=== PATIENT | female | born 1945 | race African-American/Black ===

== ENCOUNTER 2018-06-19 12:00 | Inpatient (IN) | payer MEDICARE, MEDICAID ==
[~2018-06-19] VITALS: Ht 162.6 cm; Wt 97.1 kg
[~2018-06-19 12:00] MED LIST: ACET1TAB14 PO; ASPI-986 PO; BENA40TA66 PO; BUDE6HFA IH; CYM20 PO; LEVO500T2 PO; LORA0.5T2 PO; OMEP20TA2 PO; SIMV20TA6 PO
[2018-06-19 12:56] LABS: HEMATOCRIT. 35.4 % (36.0-48.0); MEAN CORPUSCULAR HEMOGLOBIN 30.6 pg (28.0-32.0); MEAN CORPUSCULAR VOLUME 90.5 fL (81.0-99.0); MEAN PLATELET VOLUME 7.9 fl (7.4-10.4); PLATELET 260 x1000/uL (130-400); RED BLOOD CELL COUNT 3.91 mill/uL (4.2-5.4); RED CELL DISTRIBUTION WIDTH 15.1 % (11.6-14.6)
[2018-06-19 13:02] LABS: CHLORIDE 104 mEq/L (98-107)
[2018-06-19 13:23] LABS: PARTIAL THROMBOPLASTIN TIME 26.7 sec (23.4-31.0); PROTHROMBIN TIME 10.4 sec (9.1-11.1)
[2018-06-19 14:07] LABS: PLATELET ESTIMATE NORMAL
[2018-06-19] MEDS ORDERED: HYDROCODONE/ACETAMINOPHEN 5/325MG TABLET PO ONE (15:30)
[2018-06-19] MEDS ORDERED: MAGNESIUM/ALUMINUM HYDROXIDE/SIMETHICONE 30ML UDC PO PRN (16:15)
[2018-06-19] MEDS ORDERED: CLONIDINE 0.1MG TABLET PO PRN (16:15)
[2018-06-19] MEDS ORDERED: NITROGLYCERIN 0.4MG TABLET SL SL PRN (16:15)
[2018-06-19] MEDS ORDERED: DIPHENHYDRAMINE 50MG/ML VIAL IV PRN (16:15)
[2018-06-19] MEDS ORDERED: DOCUSATE SODIUM 100MG CAPSULE PO PRN (16:15)
[2018-06-19] MEDS ORDERED: LORAZEPAM 0.5MG TABLET PO PRN (16:15)
[2018-06-19] MEDS ORDERED: NA PHOS,M-B/NA PHOS,DI-BA ENEMA 118ML PR PRN (16:15)
[2018-06-19] MEDS ORDERED: ACETAMINOPHEN 325MG TABLET PO PRN (16:15)
[2018-06-19] MEDS ORDERED: ZOLPIDEM TARTRATE 5MG TABLET PO PRN (21:00)
[2018-06-19 23:22] VITALS: BP 124/54
[2018-06-19] MEDS ORDERED: ONDANSETRON HCL 4MG/2ML INJ IV PRN (23:40)
[2018-06-20] VITALS: BP 124/54
[2018-06-20] MEDS: LISINOPRIL 20MG TABLET PO SCH ×3 (00:31→20:43)
[2018-06-20 01:08] LABS: CREATINE KINASE 71 IU/L (26-192)
[2018-06-20 01:09] LABS: CREATINE KINASE MB FRACTION 1.1 ng/mL (0.5-3.6)
[2018-06-20] MEDS: IPRATROPIUM/ALBUTEROL 0.5-3(2.5)MG/3ML NEB HHN SCH ×6 (01:19→21:12)
[2018-06-20 04:00] VITALS: BP 115/55
[2018-06-20 08:00] VITALS: BP 143/37
[2018-06-20] MEDS ORDERED: ENOXAPARIN 40MG/0.4ML SYR SUBCUT SCH (09:00)
[2018-06-20] MEDS: ASPIRIN 325MG EC TABLET PO SCH (10:34)
[2018-06-20] MEDS: FAMOTIDINE 20MG TABLET PO SCH ×2 (10:34→20:49)
[2018-06-20] MEDS: TRAMADOL 50MG TABLET PO PRN (10:35)
[2018-06-20] MEDS: MORPHINE SULFATE 4 MG/ML CPJ (NOT FOR IM USE) IV PRN ×3 (11:31→20:51)
[2018-06-20 12:16] VITALS: BP 94/48
[2018-06-20 16:19] LABS: CREATINE KINASE 62 IU/L (26-192); CREATINE KINASE MB FRACTION < 1.0 ng/mL (0.5-3.6)
[2018-06-20 16:32] VITALS: BP 78/45
[2018-06-20 20:36] VITALS: BP 101/62
[2018-06-20] MEDS: ATORVASTATIN CALCIUM 10MG TABLET PO SCH (20:49)
[2018-06-20] MEDS: ENOXAPARIN 30MG/0.3ML SYR SUBCUT SCH (20:50)
[2018-06-21] VITALS (8 sets, daily range): BP systolic 88–115; BP diastolic 42–85
[2018-06-21] MEDS: MORPHINE SULFATE 4 MG/ML CPJ (NOT FOR IM USE) IV PRN ×3 (01:12→16:07)
[2018-06-21] MEDS: IPRATROPIUM/ALBUTEROL 0.5-3(2.5)MG/3ML NEB HHN SCH ×6 (04:00→22:11)
[2018-06-21] MEDS: LISINOPRIL 20MG TABLET PO SCH ×2 (09:00→21:00)
[2018-06-21] MEDS: ENOXAPARIN 30MG/0.3ML SYR SUBCUT SCH ×2 (09:00→21:11)
[2018-06-21] MEDS: ASPIRIN 325MG EC TABLET PO SCH (09:24)
[2018-06-21] MEDS: FAMOTIDINE 20MG TABLET PO SCH ×2 (09:25→21:11)
[2018-06-21] MEDS ORDERED: SODIUM CHLORIDE 0.9% 250 ML IV ONE (14:00)
[2018-06-21 15:16] LABS: HEMATOCRIT. 33.8 % (36.0-48.0); HEMOGLOBIN. 11.3 g/dL (12.0-16.0); MEAN CORPUSCULAR HEMOGLOBIN 30.4 pg (28.0-32.0); MEAN CORPUSCULAR VOLUME 91.4 fL (81.0-99.0); PLATELET 256 x1000/uL (130-400); RED CELL DISTRIBUTION WIDTH 15.2 % (11.6-14.6)
[2018-06-21 16:02] LABS: PLATELET ESTIMATE NORMAL
[2018-06-21] MEDS: ATORVASTATIN CALCIUM 10MG TABLET PO SCH (21:11)
[2018-06-22 00:18] VITALS: BP 122/74
[2018-06-22] MEDS: TRAMADOL 50MG TABLET PO PRN ×3 (00:21→21:45)
[2018-06-22 01:18] LABS: CLARITY URINE CLOUDY (CLEAR); COLOR URINE YELLOW (YELLOW); KETONES URINE NEGATIVE (NEGATIVE); LEUKOCYTE ESTERASE URINE 3+ (NEGATIVE); NITRITE URINE NEGATIVE (NEGATIVE); OCCULT BLOOD URINE NEGATIVE (NEGATIVE); PROTEIN URINE NEGATIVE (NEGATIVE); SPECIFIC GRAVITY URINE 1.009 (1.005-1.030); UROBILINOGEN URINE 0.2 E.U./dL (0.2-1.0)
[2018-06-22] MEDS: IPRATROPIUM/ALBUTEROL 0.5-3(2.5)MG/3ML NEB HHN SCH ×5 (01:48→20:57)
[2018-06-22 04:00] VITALS: BP 103/48
[2018-06-22 07:53] VITALS: BP 90/48
[2018-06-22] MEDS: LISINOPRIL 20MG TABLET PO SCH ×2 (09:00→20:56)
[2018-06-22] MEDS: ASPIRIN 325MG EC TABLET PO SCH (09:37)
[2018-06-22] MEDS: FAMOTIDINE 20MG TABLET PO SCH ×2 (09:37→20:56)
[2018-06-22] MEDS: ENOXAPARIN 30MG/0.3ML SYR SUBCUT SCH ×2 (09:38→20:57)
[2018-06-22] MEDS: CEFTRIAXONE 1 G PREMIX 50 ML IV SCH (11:30)
[2018-06-22 11:54] VITALS: BP 86/36
[2018-06-22] MEDS ORDERED: LEVOFLOXACIN 500MG PREMIX 100 ML IV NR (12:00)
[2018-06-22 16:27] VITALS: BP 93/41
[2018-06-22 20:13] VITALS: BP 99/49
[2018-06-22] MEDS: ATORVASTATIN CALCIUM 10MG TABLET PO SCH (20:56)
[2018-06-23] VITALS: BP 91/47
[2018-06-23] MEDS: IPRATROPIUM/ALBUTEROL 0.5-3(2.5)MG/3ML NEB HHN SCH ×7 (01:06→21:20)
[2018-06-23 04:00] VITALS: BP 99/52
[2018-06-23 08:00] VITALS: BP 128/62
[2018-06-23] MEDS: LISINOPRIL 20MG TABLET PO SCH ×2 (08:16→20:28)
[2018-06-23] MEDS: FAMOTIDINE 20MG TABLET PO SCH (08:16)
[2018-06-23] MEDS: ASPIRIN 325MG EC TABLET PO SCH (08:16)
[2018-06-23] MEDS: ENOXAPARIN 30MG/0.3ML SYR SUBCUT SCH ×2 (08:17→20:27)
[2018-06-23] MEDS: CEFTRIAXONE 1 G PREMIX 50 ML IV SCH (10:39)
[2018-06-23] MEDS ORDERED: LEVOFLOXACIN 250MG PREMIX 50 ML IV SCH (11:00)
[2018-06-23 12:00] VITALS: BP 108/40
[2018-06-23 16:00] VITALS: BP 96/58
[2018-06-23] MEDS: TRAMADOL 50MG TABLET PO PRN ×2 (16:15→20:27)
[2018-06-23 20:00] VITALS: BP 91/47
[2018-06-23] MEDS: ATORVASTATIN CALCIUM 10MG TABLET PO SCH (20:27)
[2018-06-24] VITALS: BP 99/53
[2018-06-24] MEDS: IPRATROPIUM/ALBUTEROL 0.5-3(2.5)MG/3ML NEB HHN SCH ×6 (00:19→23:47)
[2018-06-24 04:00] VITALS: BP 108/39
[2018-06-24 08:43] VITALS: BP 95/53
[2018-06-24] MEDS: ENOXAPARIN 30MG/0.3ML SYR SUBCUT SCH ×2 (08:53→20:34)
[2018-06-24] MEDS: FAMOTIDINE 20MG TABLET PO SCH (08:53)
[2018-06-24] MEDS: LISINOPRIL 20MG TABLET PO SCH ×2 (08:53→20:34)
[2018-06-24] MEDS: ASPIRIN 325MG EC TABLET PO SCH (08:53)
[2018-06-24] MEDS: TRAMADOL 50MG TABLET PO PRN (08:54)
[2018-06-24 13:01] VITALS: BP 106/52
[2018-06-24] MEDS: MEROPENEM 1,000 MG in SODIUM CHLORIDE 0.9% 100 ML IV SCH ×2 (13:07→20:34)
[2018-06-24 17:45] VITALS: BP 109/44
[2018-06-24 20:00] VITALS: BP 116/65
[2018-06-24] MEDS ORDERED: TRAMADOL 50MG TABLET PO PRN (20:30)
[2018-06-24] MEDS ORDERED: LORAZEPAM 0.5MG TABLET PO PRN (20:30)
[2018-06-24] MEDS: MORPHINE SULFATE 4 MG/ML CPJ (NOT FOR IM USE) IV PRN (20:33)
[2018-06-24] MEDS: ATORVASTATIN CALCIUM 10MG TABLET PO SCH (20:34)
[2018-06-25] VITALS: BP 99/50
[2018-06-25] MEDS: IPRATROPIUM/ALBUTEROL 0.5-3(2.5)MG/3ML NEB HHN SCH ×2 (03:04→08:00)
[2018-06-25 04:00] VITALS: BP 135/80
[2018-06-25] MEDS: MEROPENEM 1,000 MG in SODIUM CHLORIDE 0.9% 100 ML IV SCH (05:11)
[2018-06-25] MEDS: MORPHINE SULFATE 4 MG/ML CPJ (NOT FOR IM USE) IV PRN (06:06)
[2018-06-25] MEDS: LISINOPRIL 20MG TABLET PO SCH (09:00)
[2018-06-25] MEDS: FAMOTIDINE 20MG TABLET PO SCH (09:26)
[2018-06-25] MEDS: ENOXAPARIN 30MG/0.3ML SYR SUBCUT SCH (09:26)
[2018-06-25] MEDS: ASPIRIN 325MG EC TABLET PO SCH (09:26)
[2018-06-25 10:34] VITALS: BP 99/99
== END 2018-06-25 11:15 | disposition home or self-care (01) | DRG 689 ==
LOC: ER 12:52 → 6WST 13:54 → EDBEDREQ 14:06 → EDBEDREQTM 14:06 → SUPCPDRO 16:08 → ENRESERV 20:04
PROVIDERS: ADMIT Internal Medicine; ATTEND Internal Medicine
DX: N39.0 Urinary tract infection, site not specified (principal); G92 Toxic encephalopathy; E87.1 Hypo-osmolality and hyponatremia; R07.89 Other chest pain; E78.00 Pure hypercholesterolemia, unspecified; E78.5 Hyperlipidemia, unspecified; J44.9 Chronic obstructive pulmonary disease, unspecified; B96.20 Unspecified Escherichia coli [E. coli] as the cause of diseases classified elsewhere; K21.9 Gastro-esophageal reflux disease without esophagitis; Z96.659 Presence of unspecified artificial knee joint; F32.9 Major depressive disorder, single episode, unspecified; Z16.12 Extended spectrum beta lactamase (ESBL) resistance; F41.9 Anxiety disorder, unspecified; I10 Essential (primary) hypertension; Z76.5 Malingerer [conscious simulation]; Z79.82 Long term (current) use of aspirin; Z79.899 Other long term (current) drug therapy; Z91.19 Patient's noncompliance with other medical treatment and regimen; Z82.49 Family history of ischemic heart disease and other diseases of the circulatory system; Z79.2 Long term (current) use of antibiotics; Z79.1 Long term (current) use of non-steroidal anti-inflammatories (NSAID)
CPT/HCPCS: 36415; 71045; 80048; 80053; 80061; 81003; 82550; 82553; 83036; 83880; 84484; 85025; 85610; 85730; 87040; 87077; 87086; 87186; 93005; 93970; 94640; 99285; C1893; J0696; J1650; J1956; J2185; J2270; J7050; J7620

== ENCOUNTER 2018-07-02 11:56 | Emergency (ER) | payer MEDICARE, MEDICAID ==
[~2018-07-02] VITALS: Ht 157.5 cm; Wt 78.0 kg
[2018-07-02] MEDS ORDERED: ACETAMINOPHEN 500MG TABLET PO ONE (13:45)
[2018-07-02 14:50] VITALS: BP 118/72
== END 2018-07-02 15:20 | disposition home or self-care (01) ==
LOC: ER 11:56
DX: S50.12XA Contusion of left forearm, initial encounter (principal); S40.022A Contusion of left upper arm, initial encounter; I11.0 Hypertensive heart disease with heart failure; I50.9 Heart failure, unspecified; J44.9 Chronic obstructive pulmonary disease, unspecified; E66.9 Obesity, unspecified; Z68.31 Body mass index [BMI] 31.0-31.9, adult; Z86.73 Personal history of transient ischemic attack (TIA), and cerebral infarction without residual deficits; Z79.82 Long term (current) use of aspirin; Z96.659 Presence of unspecified artificial knee joint; W01.0XXA Fall on same level from slipping, tripping and stumbling without subsequent striking against object, initial encounter; Y93.89 Activity, other specified; Y92.89 Other specified places as the place of occurrence of the external cause
CPT/HCPCS: 93005; 99284; J7030

== ENCOUNTER 2018-09-08 14:09 | Emergency (ER) | payer MEDICARE, MEDICAID ==
[~2018-09-08] VITALS: Ht 167.6 cm; Wt 90.0 kg
[2018-09-08] MEDS ORDERED: SODIUM CHLORIDE 0.9% 1,000 ML IV ONE (14:46)
[2018-09-08 15:44] LABS: HEMATOCRIT. 36.4 % (36.0-48.0); MEAN CORPUSCULAR HEMOGLOBIN 30.5 pg (28.0-32.0); MEAN CORPUSCULAR VOLUME 92.6 fL (81.0-99.0); MEAN PLATELET VOLUME 8.8 fl (7.4-10.4); PLATELET 244 x1000/uL (130-400); RED BLOOD CELL COUNT 3.93 mill/uL (4.2-5.4)
[2018-09-08 15:47] LABS: CHLORIDE 106 mEq/L (98-107)
[2018-09-08 15:48] LABS: PROTHROMBIN TIME 9.7 sec (9.1-11.1)
[2018-09-08 16:11] LABS: PLATELET ESTIMATE NORMAL
[2018-09-08] MEDS ORDERED: ACETAMINOPHEN 325MG TABLET PO ONE (16:15)
[2018-09-08 16:52] VITALS: BP 134/60
[2018-09-08 17:26] LABS: CLARITY URINE CLEAR (CLEAR); COLOR URINE YELLOW (YELLOW); KETONES URINE NEGATIVE (NEGATIVE); LEUKOCYTE ESTERASE URINE TRACE (NEGATIVE); NITRITE URINE NEGATIVE (NEGATIVE); OCCULT BLOOD URINE NEGATIVE (NEGATIVE); PROTEIN URINE NEGATIVE (NEGATIVE); SPECIFIC GRAVITY URINE 1.008 (1.005-1.030); UROBILINOGEN URINE 0.2 E.U./dL (0.2-1.0)
== END 2018-09-08 18:49 | disposition home or self-care (01) ==
LOC: ER 14:18
DX: R55 Syncope and collapse (principal); N28.9 Disorder of kidney and ureter, unspecified; M25.511 Pain in right shoulder; J44.9 Chronic obstructive pulmonary disease, unspecified; I11.0 Hypertensive heart disease with heart failure; I50.9 Heart failure, unspecified; I69.351 Hemiplegia and hemiparesis following cerebral infarction affecting right dominant side; Z96.659 Presence of unspecified artificial knee joint; Z79.82 Long term (current) use of aspirin
CPT/HCPCS: 36415; 70450; 71045; 80053; 81003; 83605; 83880; 84484; 85025; 85610; 93005; 96360; 99284; J7030

== ENCOUNTER 2018-10-22 07:48 | Inpatient (IN) | payer MEDICARE, MEDICAID ==
[~2018-10-22] VITALS: Ht 165.1 cm; Wt 99.3 kg
[2018-10-22] MEDS ORDERED: SODIUM CHLORIDE 0.9% 1,000 ML IV ONE (08:34)
[2018-10-22 09:31] LABS: CLARITY URINE CLEAR (CLEAR); COLOR URINE YELLOW (YELLOW); KETONES URINE NEGATIVE (NEGATIVE); LEUKOCYTE ESTERASE URINE 2+ (NEGATIVE); NITRITE URINE NEGATIVE (NEGATIVE); OCCULT BLOOD URINE NEGATIVE (NEGATIVE); PH URINE 7.5 (4.5-8.0); PROTEIN URINE NEGATIVE (NEGATIVE); SPECIFIC GRAVITY URINE 1.008 (1.005-1.030); UROBILINOGEN URINE 0.2 E.U./dL (0.2-1.0)
[2018-10-22] MEDS ORDERED: LORAZEPAM 1MG TABLET PO ONE (09:45)
[2018-10-22 10:00] LABS: *AMPHETAMINES SCREEN URINE NEGATIVE (NEGATIVE); *BARBITURATES SCREEN URINE NEGATIVE (NEGATIVE); *BENZODIAZEPINES SCREEN URINE NEGATIVE (NEGATIVE); *COCAINE SCREEN URINE NEGATIVE (NEGATIVE)
[2018-10-22 10:01] LABS: CANNABINOID URINE SCREEN NEGATIVE (NEGATIVE); METHADONE URINE SCREEN NEGATIVE (NEGATIVE); OPIATES URINE SCREEN PRESUMTIVE POSITIVE (NEGATIVE); PHENCYCLIDINE URINE SCREEN NEGATIVE (NEGATIVE)
[2018-10-22] MEDS ORDERED: CEFTRIAXONE 1 G PREMIX 50 ML IV ONE (10:15)
[2018-10-22 10:29] LABS: BASOPHILS % 1.1 % (0.0-2.0); HEMATOCRIT. 30.8 % (36.0-48.0); LYMPHOCYTES % 28.6 % (20.0-50.0); MEAN CORPUSCULAR HEMOGLOBIN 30.4 pg (28.0-32.0); MEAN CORPUSCULAR VOLUME 93.2 fL (81.0-99.0); MEAN PLATELET VOLUME 7.5 fl (7.4-10.4); MONOCYTES % 9.1 % (2.0-8.0); NEUTROPHILS % 55.2 % (40.0-76.0); PLATELET 313 x1000/uL (130-400); RED CELL DISTRIBUTION WIDTH 15.1 % (11.6-14.6)
[2018-10-22 10:35] LABS: CHLORIDE 108 mEq/L (98-107)
[2018-10-22 10:39] LABS: ETHANOL BLOOD < 10 mg/dL
[2018-10-22] MEDS ORDERED: DOCUSATE SODIUM 100MG CAPSULE PO PRN (11:15)
[2018-10-22] MEDS ORDERED: GUAIFENESIN 200MG/10ML SUGAR FREE UDC PO PRN (11:15)
[2018-10-22] MEDS ORDERED: ONDANSETRON HCL 4MG/2ML INJ IV PRN (11:15)
[2018-10-22] MEDS ORDERED: CLONIDINE 0.1MG TABLET PO PRN (11:15)
[2018-10-22] MEDS ORDERED: MAGNESIUM/ALUMINUM HYDROXIDE/SIMETHICONE 30ML UDC PO PRN (11:15)
[2018-10-22] MEDS ORDERED: IPRATROPIUM/ALBUTEROL 0.5-3(2.5)MG/3ML NEB INH PRN (11:15)
[2018-10-22] MEDS ORDERED: ACETAMINOPHEN 325MG TABLET PO PRN (11:15)
[2018-10-22] MEDS ORDERED: NA PHOS,M-B/NA PHOS,DI-BA ENEMA 118ML PR PRN (11:15)
[2018-10-22] MEDS: LORAZEPAM 2MG/ML CPJ IV PRN (13:14)
[2018-10-22 14:19] VITALS: BP 119/54
[2018-10-22 16:00] VITALS: BP 123/65
[2018-10-22] MEDS: HYDROMORPHONE HCL/PF 2MG/ML CPJ IV PRN ×2 (16:27→21:06)
[2018-10-22] MEDS: SODIUM CHLORIDE 0.45% 1,000 ML IV SCH (16:29)
[2018-10-22] MEDS: PIPERACILLIN/TAZ 3.375G PREMIX 50 ML IV SCH ×2 (16:42→22:14)
[2018-10-22] MEDS: ASPIRIN 81MG EC TABLET PO SCH (16:42)
[2018-10-22 20:00] VITALS: BP 138/56
[2018-10-22] MEDS: ENOXAPARIN 30MG/0.3ML SYR SUBCUT SCH (21:07)
[2018-10-23] VITALS: BP 127/55
[2018-10-23 00:49] LABS: CHLORIDE 110 mEq/L (98-107)
[2018-10-23] MEDS: HYDROMORPHONE HCL/PF 2MG/ML CPJ IV PRN (01:47)
[2018-10-23] MEDS: DIPHENHYDRAMINE 50MG/ML VIAL IV PRN ×2 (02:11→21:15)
[2018-10-23 04:00] VITALS: BP 106/65
[2018-10-23] MEDS: PIPERACILLIN/TAZ 3.375G PREMIX 50 ML IV SCH ×3 (04:09→18:10)
[2018-10-23] MEDS: SODIUM CHLORIDE 0.45% 1,000 ML IV SCH ×2 (04:17→21:14)
[2018-10-23 07:29] LABS: BASOPHILS % 1.8 % (0.0-2.0); HEMATOCRIT. 30.9 % (36.0-48.0); HEMOGLOBIN. 10.2 g/dL (12.0-16.0); MEAN CORPUSCULAR VOLUME 93.9 fL (81.0-99.0); MEAN PLATELET VOLUME 8.3 fl (7.4-10.4); NEUTROPHILS % 36.2 % (40.0-76.0); PLATELET 311 x1000/uL (130-400); RED BLOOD CELL COUNT 3.29 mill/uL (4.2-5.4); RED CELL DISTRIBUTION WIDTH 15.4 % (11.6-14.6)
[2018-10-23 08:00] LABS: CHLORIDE 109 mEq/L (98-107)
[2018-10-23 08:10] LABS: LDL CHOLESTEROL 71 mg/dL (5-100)
[2018-10-23 08:11] LABS: HDL CHOLESTEROL 59 mg/dL (40-59); T4 FREE 1.02 ng/dL (0.76-1.46)
[2018-10-23 08:43] VITALS: BP 106/62
[2018-10-23] MEDS: ASPIRIN 81MG EC TABLET PO SCH (09:25)
[2018-10-23] MEDS: ENOXAPARIN 30MG/0.3ML SYR SUBCUT SCH ×2 (09:28→21:14)
[2018-10-23 12:00] VITALS: BP 109/49
[2018-10-23 15:40] LABS: CREATINE KINASE 57 IU/L (26-192)
[2018-10-23 15:42] LABS: CREATINE KINASE MB FRACTION < 1.0 ng/mL (0.5-3.6)
[2018-10-23 16:00] VITALS: BP 124/63
[2018-10-23] MEDS: HYDROCODONE/ACETAMINOPHEN 5/325MG TABLET PO PRN ×2 (18:26→22:09)
[2018-10-23 20:00] VITALS: BP 132/64
[2018-10-23] MEDS: LORAZEPAM 2MG/ML CPJ IV PRN (22:49)
[2018-10-24] VITALS: BP 140/66
[2018-10-24] MEDS: PIPERACILLIN/TAZ 3.375G PREMIX 50 ML IV SCH ×4 (00:38→19:46)
[2018-10-24 01:53] LABS: CREATINE KINASE 58 IU/L (26-192)
[2018-10-24 01:54] LABS: CREATINE KINASE MB FRACTION < 1.0 ng/mL (0.5-3.6)
[2018-10-24 04:00] VITALS: BP 132/69
[2018-10-24] MEDS: HYDROCODONE/ACETAMINOPHEN 5/325MG TABLET PO PRN (05:02)
[2018-10-24 08:00] VITALS: BP 114/63
[2018-10-24 08:01] LABS: BASOPHILS % 2.3 % (0.0-2.0); EOSINOPHILS % 14.4 % (0.0-5.0); HEMATOCRIT. 30.7 % (36.0-48.0); HEMOGLOBIN. 10.3 g/dL (12.0-16.0); LYMPHOCYTES % 37.8 % (20.0-50.0); MEAN CORPUSCULAR HEMOGLOBIN 31.1 pg (28.0-32.0); MEAN CORPUSCULAR VOLUME 92.7 fL (81.0-99.0); MEAN PLATELET VOLUME 8.3 fl (7.4-10.4); MONOCYTES % 10.9 % (2.0-8.0); NEUTROPHILS % 34.6 % (40.0-76.0); PLATELET 306 x1000/uL (130-400); RED BLOOD CELL COUNT 3.31 mill/uL (4.2-5.4); RED CELL DISTRIBUTION WIDTH 14.8 % (11.6-14.6)
[2018-10-24 08:43] LABS: CHLORIDE 112 mEq/L (98-107)
[2018-10-24 08:54] LABS: CREATINE KINASE 60 IU/L (26-192)
[2018-10-24 09:02] LABS: CREATINE KINASE MB FRACTION < 1.0 ng/mL (0.5-3.6)
[2018-10-24] MEDS: ASPIRIN 81MG EC TABLET PO SCH (10:07)
[2018-10-24] MEDS: ENOXAPARIN 30MG/0.3ML SYR SUBCUT SCH ×2 (10:07→20:47)
[2018-10-24 12:00] VITALS: BP 123/48
[2018-10-24] MEDS: HYDROMORPHONE HCL/PF 2MG/ML CPJ IV PRN ×2 (13:45→20:46)
[2018-10-24] MEDS: SODIUM CHLORIDE 0.45% 1,000 ML IV SCH (16:42)
[2018-10-24 20:00] VITALS: BP 117/49
[2018-10-24] MEDS: DIPHENHYDRAMINE 50MG/ML VIAL IV PRN (20:46)
[2018-10-25] VITALS: BP 120/58
[2018-10-25] MEDS: HYDROMORPHONE HCL/PF 2MG/ML CPJ IV PRN ×2 (00:57→11:29)
[2018-10-25] MEDS: LORAZEPAM 2MG/ML CPJ IV PRN (00:57)
[2018-10-25] MEDS: PIPERACILLIN/TAZ 3.375G PREMIX 50 ML IV SCH ×3 (01:00→12:47)
[2018-10-25] MEDS: SODIUM CHLORIDE 0.45% 1,000 ML IV SCH (01:01)
[2018-10-25 04:00] VITALS: BP 121/46
[2018-10-25] MEDS: HYDROCODONE/ACETAMINOPHEN 5/325MG TABLET PO PRN (05:26)
[2018-10-25 08:00] VITALS: BP 118/88
[2018-10-25] MEDS: ENOXAPARIN 30MG/0.3ML SYR SUBCUT SCH ×2 (09:00→09:45)
[2018-10-25] MEDS: ASPIRIN 81MG EC TABLET PO SCH (09:45)
[2018-10-25 12:00] VITALS: BP_SYST 109; BP_SYST 112; BP_DIAS 33; BP_DIAS 42
[2018-10-25 15:14] VITALS: BP 140/80
== END 2018-10-25 15:40 | disposition home or self-care (01) | DRG 553 ==
LOC: ER 07:48 → 5WST 11:01 → EDBEDREQSVC 11:03 → EDBEDREQ 11:03 → ENRESERV 12:10
PROVIDERS: ADMIT Internal Medicine; ATTEND Internal Medicine
DX: M19.90 Unspecified osteoarthritis, unspecified site (principal); G93.41 Metabolic encephalopathy; N39.0 Urinary tract infection, site not specified; E46 Unspecified protein-calorie malnutrition; I69.354 Hemiplegia and hemiparesis following cerebral infarction affecting left non-dominant side; E86.0 Dehydration; I25.10 Atherosclerotic heart disease of native coronary artery without angina pectoris; I11.0 Hypertensive heart disease with heart failure; I50.9 Heart failure, unspecified; M17.0 Bilateral primary osteoarthritis of knee; Z79.51 Long term (current) use of inhaled steroids; Z79.82 Long term (current) use of aspirin; Z79.899 Other long term (current) drug therapy; Z87.891 Personal history of nicotine dependence; Z98.891 History of uterine scar from previous surgery; Z68.36 Body mass index [BMI] 36.0-36.9, adult
CPT/HCPCS: 36415; 71045; 80048; 80061; 80305; 82550; 82553; 83036; 83605; 83880; 84145; 84439; 84443; 84481; 84484; 85379; 93005; 93306; 96365; 97162; 97530; 99285; C1893; G0482; J0696; J1170; J1200; J1650; J2060; J2543; J7030; A4315

== ENCOUNTER 2019-02-03 15:37 | Emergency (ER) | payer MEDICARE, MEDICAID ==
[~2019-02-03] VITALS: Ht 175.3 cm; Wt 89.0 kg
[2019-02-03] MEDS ORDERED: IBUPROFEN 600MG TABLET PO ONE (16:15)
[2019-02-03] MEDS ORDERED: HYDROCODONE/ACETAMINOPHEN 5/325MG TABLET PO ONE (16:15)
[2019-02-03 19:04] VITALS: BP 127/72
== END 2019-02-03 19:06 | disposition home or self-care (01) ==
LOC: ER 15:37
DX: M47.892 Other spondylosis, cervical region (principal); M54.12 Radiculopathy, cervical region; J44.9 Chronic obstructive pulmonary disease, unspecified; I10 Essential (primary) hypertension; Z86.73 Personal history of transient ischemic attack (TIA), and cerebral infarction without residual deficits; Z79.899 Other long term (current) drug therapy; Z79.82 Long term (current) use of aspirin
CPT/HCPCS: 99284

== ENCOUNTER 2019-03-03 21:48 | Emergency (ER) | payer MEDICAID, MEDICARE ==
[~2019-03-03] VITALS: Ht 152.4 cm; Wt 88.0 kg
[2019-03-03] MEDS ORDERED: SODIUM CHLORIDE 0.9% 500 ML IV ONE (22:42)
[2019-03-04 00:55] LABS: BASOPHILS % 1.1 % (0.0-2.0); EOSINOPHILS % 3.7 % (0.0-5.0); HEMATOCRIT. 38.9 % (36.0-48.0); HEMOGLOBIN. 13.1 g/dL (12.0-16.0); LYMPHOCYTES % 22.3 % (20.0-50.0); MEAN CORPUSCULAR HEMOGLOBIN 30.2 pg (28.0-32.0); MEAN PLATELET VOLUME 8.1 fl (7.4-10.4); MONOCYTES % 8.6 % (2.0-8.0); NEUTROPHILS % 64.3 % (40.0-76.0); PLATELET 324 x1000/uL (130-400); RED BLOOD CELL COUNT 4.33 mill/uL (4.2-5.4); RED CELL DISTRIBUTION WIDTH 15.2 % (11.6-14.6)
[2019-03-04 01:01] LABS: CHLORIDE 100 mEq/L (98-107)
[2019-03-04 01:02] LABS: PROTHROMBIN TIME 10.1 sec (9.6-11.0)
[2019-03-04 01:05] LABS: ETHANOL BLOOD < 10 mg/dL
[2019-03-04 01:08] LABS: LDL CHOLESTEROL 135 mg/dL (5-100)
[2019-03-04] MEDS ORDERED: KETOROLAC 15MG/ML VIAL IV ONE (02:00)
[2019-03-04] MEDS ORDERED: ACETAMINOPHEN 325MG TABLET PO ONE (02:00)
[2019-03-04 02:35] LABS: CLARITY URINE CLEAR (CLEAR); COLOR URINE YELLOW (YELLOW); KETONES URINE NEGATIVE (NEGATIVE); LEUKOCYTE ESTERASE URINE TRACE (NEGATIVE); NITRITE URINE NEGATIVE (NEGATIVE); OCCULT BLOOD URINE NEGATIVE (NEGATIVE); PROTEIN URINE NEGATIVE (NEGATIVE); SPECIFIC GRAVITY URINE 1.015 (1.005-1.030); UROBILINOGEN URINE 0.2 E.U./dL (0.2-1.0)
[2019-03-04 03:04] LABS: *AMPHETAMINES SCREEN URINE NEGATIVE (NEGATIVE); *BARBITURATES SCREEN URINE NEGATIVE (NEGATIVE); *BENZODIAZEPINES SCREEN URINE NEGATIVE (NEGATIVE); *COCAINE SCREEN URINE NEGATIVE (NEGATIVE); CANNABINOID URINE SCREEN NEGATIVE (NEGATIVE)
[2019-03-04 03:05] LABS: METHADONE URINE SCREEN NEGATIVE (NEGATIVE); OPIATES URINE SCREEN NEGATIVE (NEGATIVE); PHENCYCLIDINE URINE SCREEN NEGATIVE (NEGATIVE)
[2019-03-04 05:26] VITALS: BP 106/55
== END 2019-03-04 05:36 | disposition home or self-care (01) ==
LOC: ER 22:45 → CANBEDREQ 03-04 02:39 → ER 03-04 05:36
DX: M54.12 Radiculopathy, cervical region (principal); N17.9 Acute kidney failure, unspecified; G89.29 Other chronic pain; M25.50 Pain in unspecified joint; R82.71 Bacteriuria; M79.662 Pain in left lower leg; M79.661 Pain in right lower leg; J44.9 Chronic obstructive pulmonary disease, unspecified; I10 Essential (primary) hypertension; I25.10 Atherosclerotic heart disease of native coronary artery without angina pectoris; Z86.73 Personal history of transient ischemic attack (TIA), and cerebral infarction without residual deficits; Z79.82 Long term (current) use of aspirin
CPT/HCPCS: 36415; 70450; 71045; 80053; 80305; 80320; 81003; 82962; 83721; 84484; 85025; 85610; 93005; 96361; 96374; 99284; C1893; J1885; J7040; G0480

== ENCOUNTER 2019-03-22 08:14 | Inpatient (IN) | payer MEDICARE, MEDICAID ==
[~2019-03-22] VITALS: Ht 165.1 cm; Wt 101.6 kg
[2019-03-22] MEDS ORDERED: ACETAMINOPHEN 325MG TABLET PO STA (08:39)
[2019-03-22 09:08] LABS: BASOPHILS % 1.3 % (0.0-2.0); EOSINOPHILS % 5.4 % (0.0-5.0); HEMATOCRIT. 34.1 % (36.0-48.0); HEMOGLOBIN. 11.4 g/dL (12.0-16.0); MEAN CORPUSCULAR HEMOGLOBIN 29.9 pg (28.0-32.0); MEAN CORPUSCULAR VOLUME 89.2 fL (81.0-99.0); MEAN PLATELET VOLUME 7.3 fl (7.4-10.4); MONOCYTES % 10.4 % (2.0-8.0); NEUTROPHILS % 50.9 % (40.0-76.0); PLATELET 261 x1000/uL (130-400); RED BLOOD CELL COUNT 3.82 mill/uL (4.2-5.4); RED CELL DISTRIBUTION WIDTH 14.9 % (11.6-14.6)
[2019-03-22 09:16] LABS: CHLORIDE 105 mEq/L (98-107)
[2019-03-22] MEDS ORDERED: LIDOCAINE HCL 1% 20ML VIAL (Pyxis) INJ ONE (10:09)
[2019-03-22] MEDS ORDERED: KETOROLAC 15MG/ML VIAL IV ONE (10:30)
[2019-03-22] MEDS ORDERED: ASPIRIN 81MG TABLET PO ONE (10:30)
[2019-03-22] MEDS ORDERED: IPRATROPIUM/ALBUTEROL 0.5-3(2.5)MG/3ML NEB INH PRN (11:00)
[2019-03-22] MEDS ORDERED: MAGNESIUM/ALUMINUM HYDROXIDE/SIMETHICONE 30ML UDC PO PRN (11:00)
[2019-03-22] MEDS ORDERED: TRAMADOL 50MG TABLET PO PRN (11:00)
[2019-03-22] MEDS ORDERED: ONDANSETRON HCL 4MG/2ML INJ IV PRN (11:00)
[2019-03-22] MEDS ORDERED: NITROGLYCERIN 0.4MG TABLET SL SL PRN (11:00)
[2019-03-22] MEDS ORDERED: DOCUSATE SODIUM 100MG CAPSULE PO PRN (11:00)
[2019-03-22] MEDS ORDERED: GUAIFENESIN 200MG/10ML SUGAR FREE UDC PO PRN (11:00)
[2019-03-22] MEDS ORDERED: CLONIDINE 0.1MG TABLET PO PRN (11:00)
[2019-03-22 15:09] VITALS: BP 125/86
[2019-03-22 15:59] VITALS: BP 129/66
[2019-03-22 17:08] LABS: CREATINE KINASE 157 IU/L (26-192); CREATINE KINASE MB FRACTION 1.9 ng/mL (0.5-3.6)
[2019-03-22 20:00] VITALS: BP 130/72
[2019-03-22] MEDS ORDERED: ZOLPIDEM TARTRATE 5MG TABLET PO PRN (21:00)
[2019-03-22] MEDS: ASCORBIC ACID 500 MG TABLET PO SCH (21:21)
[2019-03-22] MEDS: ATORVASTATIN CALCIUM 10MG TABLET PO SCH (21:22)
[2019-03-22] MEDS: LISINOPRIL 20MG TABLET PO SCH (21:22)
[2019-03-22] MEDS: FAMOTIDINE 20MG TABLET PO SCH (21:22)
[2019-03-22] MEDS: ENOXAPARIN 30MG/0.3ML SYR SUBCUT SCH (21:24)
[2019-03-22] MEDS: MORPHINE SULFATE 2 MG/ML CPJ (NOT FOR IM USE) IV PRN (21:41)
[2019-03-23] VITALS: BP 113/58
[2019-03-23] MEDS: MORPHINE SULFATE 2 MG/ML CPJ (NOT FOR IM USE) IV PRN ×5 (01:43→21:46)
[2019-03-23] MEDS: ACETAMINOPHEN 325MG TABLET PO PRN ×2 (02:36→14:16)
[2019-03-23 04:00] VITALS: BP 102/51
[2019-03-23 06:31] LABS: CREATINE KINASE 95 IU/L (26-192)
[2019-03-23 06:32] LABS: CREATINE KINASE MB FRACTION 1.2 ng/mL (0.5-3.6)
[2019-03-23 08:00] VITALS: BP 106/67
[2019-03-23] MEDS: FAMOTIDINE 20MG TABLET PO SCH ×2 (08:42→21:47)
[2019-03-23] MEDS: LISINOPRIL 20MG TABLET PO SCH ×2 (08:42→21:47)
[2019-03-23] MEDS: ZINC SULFATE 220 MG ( 50 ) CAPSULE PO SCH (08:42)
[2019-03-23] MEDS: ASPIRIN 325MG EC TABLET PO SCH (08:42)
[2019-03-23] MEDS: ASCORBIC ACID 500 MG TABLET PO SCH ×2 (08:42→21:47)
[2019-03-23] MEDS: ENOXAPARIN 30MG/0.3ML SYR SUBCUT SCH ×2 (08:43→21:46)
[2019-03-23 12:00] VITALS: BP 111/53
[2019-03-23 13:14] LABS: *AMPHETAMINES SCREEN URINE NEGATIVE (NEGATIVE); *BARBITURATES SCREEN URINE NEGATIVE (NEGATIVE); *BENZODIAZEPINES SCREEN URINE NEGATIVE (NEGATIVE); CANNABINOID URINE SCREEN NEGATIVE (NEGATIVE); METHADONE URINE SCREEN NEGATIVE (NEGATIVE); OPIATES URINE SCREEN PRESUMTIVE POSITIVE (NEGATIVE); PHENCYCLIDINE URINE SCREEN NEGATIVE (NEGATIVE)
[2019-03-23 13:15] LABS: *COCAINE SCREEN URINE NEGATIVE (NEGATIVE)
[2019-03-23 16:00] VITALS: BP 106/60
[2019-03-23] MEDS ORDERED: REGADENOSON 0.4 MG/5 ML IV NR (16:45)
[2019-03-23 20:00] VITALS: BP 101/77
[2019-03-23] MEDS: ATORVASTATIN CALCIUM 10MG TABLET PO SCH (21:47)
[2019-03-24] VITALS: BP 120/80
[2019-03-24] MEDS: MORPHINE SULFATE 2 MG/ML CPJ (NOT FOR IM USE) IV PRN ×5 (02:16→18:57)
[2019-03-24 04:00] VITALS: BP 109/61
[2019-03-24] MEDS: ACETAMINOPHEN 325MG TABLET PO PRN (05:20)
[2019-03-24 06:09] LABS: BASOPHILS % 1.1 % (0.0-2.0); EOSINOPHILS % 8.3 % (0.0-5.0); HEMATOCRIT. 33.8 % (36.0-48.0); HEMOGLOBIN. 11.2 g/dL (12.0-16.0); LYMPHOCYTES % 39.2 % (20.0-50.0); MEAN CORPUSCULAR HEMOGLOBIN 29.9 pg (28.0-32.0); MEAN CORPUSCULAR VOLUME 89.6 fL (81.0-99.0); MEAN PLATELET VOLUME 8.1 fl (7.4-10.4); MONOCYTES % 9.3 % (2.0-8.0); NEUTROPHILS % 42.1 % (40.0-76.0); PLATELET 258 x1000/uL (130-400); RED BLOOD CELL COUNT 3.77 mill/uL (4.2-5.4); RED CELL DISTRIBUTION WIDTH 14.8 % (11.6-14.6)
[2019-03-24 06:51] LABS: CHLORIDE 108 mEq/L (98-107)
[2019-03-24 07:03] LABS: CREATINE KINASE 73 IU/L (26-192)
[2019-03-24 07:06] LABS: HDL CHOLESTEROL 64 mg/dL (40-59); LDL CHOLESTEROL 87 mg/dL (5-100)
[2019-03-24 08:00] VITALS: BP 99/51
[2019-03-24] MEDS: LISINOPRIL 20MG TABLET PO SCH ×2 (09:00→21:50)
[2019-03-24] MEDS: ASCORBIC ACID 500 MG TABLET PO SCH ×2 (09:53→21:45)
[2019-03-24] MEDS: ZINC SULFATE 220 MG ( 50 ) CAPSULE PO SCH (09:53)
[2019-03-24] MEDS: FAMOTIDINE 20MG TABLET PO SCH ×2 (09:53→21:45)
[2019-03-24] MEDS: ASPIRIN 325MG EC TABLET PO SCH (09:53)
[2019-03-24] MEDS: ENOXAPARIN 30MG/0.3ML SYR SUBCUT SCH ×2 (09:54→21:45)
[2019-03-24] MEDS ORDERED: BUTALBITAL/ACETAMINOPHEN/CAFFEINE 50/325/40MG TABLET PO PRN (11:45)
[2019-03-24 12:00] VITALS: BP 100/61
[2019-03-24 16:30] VITALS: BP 113/66
[2019-03-24] MEDS: KETOROLAC 15MG/ML VIAL IV PRN ×2 (17:24→21:44)
[2019-03-24 20:00] VITALS: BP 127/73
[2019-03-24] MEDS: ATORVASTATIN CALCIUM 10MG TABLET PO SCH (21:44)
[2019-03-25] VITALS: BP 120/60
[2019-03-25] MEDS: MORPHINE SULFATE 2 MG/ML CPJ (NOT FOR IM USE) IV PRN ×2 (00:22→06:06)
[2019-03-25 04:00] VITALS: BP 129/78
[2019-03-25 08:00] VITALS: BP 122/58
[2019-03-25] MEDS: FAMOTIDINE 20MG TABLET PO SCH (08:26)
[2019-03-25] MEDS: ASCORBIC ACID 500 MG TABLET PO SCH (08:26)
[2019-03-25] MEDS: ZINC SULFATE 220 MG ( 50 ) CAPSULE PO SCH (08:26)
[2019-03-25] MEDS: ASPIRIN 325MG EC TABLET PO SCH (08:26)
[2019-03-25] MEDS: LISINOPRIL 20MG TABLET PO SCH (08:26)
[2019-03-25] MEDS: ENOXAPARIN 30MG/0.3ML SYR SUBCUT SCH (08:27)
[2019-03-25 11:06] VITALS: BP 122/58
== END 2019-03-25 13:21 | disposition home or self-care (01) | DRG 313 ==
LOC: ER 08:14 → 8WST 10:29 → EDBEDREQ 10:34 → EDBEDREQTM 10:34 → SUPCPDRO 10:57 → ENRESERV 13:08
PROVIDERS: ADMIT Internal Medicine; ATTEND Internal Medicine
PROC: 05HY33Z Insertion of Infusion Device into Upper Vein, Percutaneous Approach (ICD-10-PCS; principal; 2019-03-22)
PROC: B54MZZA Ultrasonography of Right Upper Extremity Veins, Guidance (ICD-10-PCS; 2019-03-22)
DX: R07.89 Other chest pain (principal); I11.0 Hypertensive heart disease with heart failure; I10 Essential (primary) hypertension; D64.9 Anemia, unspecified; E66.01 Morbid (severe) obesity due to excess calories; E78.00 Pure hypercholesterolemia, unspecified; E78.1 Pure hyperglyceridemia; E78.5 Hyperlipidemia, unspecified; F32.9 Major depressive disorder, single episode, unspecified; F41.9 Anxiety disorder, unspecified; I25.10 Atherosclerotic heart disease of native coronary artery without angina pectoris; I50.9 Heart failure, unspecified; J44.9 Chronic obstructive pulmonary disease, unspecified; K21.9 Gastro-esophageal reflux disease without esophagitis; M19.90 Unspecified osteoarthritis, unspecified site; Z96.653 Presence of artificial knee joint, bilateral; J45.909 Unspecified asthma, uncomplicated; Z86.73 Personal history of transient ischemic attack (TIA), and cerebral infarction without residual deficits; Z79.899 Other long term (current) drug therapy
CPT/HCPCS: 36415; 36569; 36573; 71045; 80061; 80305; 82550; 82553; 83036; 83735; 83880; 84443; 84481; 84484; 85379; 93005; 93308; 93880; 93970; 97162; 97166; 97530; 97535; 99285; A9500; C1725; J1650; J1885; J2270; J2405; J3490

== ENCOUNTER 2019-05-22 10:00 | Emergency (ER) | payer MEDICARE, MEDICAID ==
[~2019-05-22] VITALS: Ht 167.6 cm; Wt 135.0 kg
[2019-05-22] MEDS ORDERED: HYDROCODONE/ACETAMINOPHEN 5/325MG TABLET PO ONE (11:00)
[2019-05-22] MEDS ORDERED: KETOROLAC 60MG/2ML VIAL IM ONE (14:30)
[2019-05-22 15:36] VITALS: BP 137/46
== END 2019-05-22 15:52 | disposition home or self-care (01) ==
LOC: ER 10:00
DX: S09.8XXA Other specified injuries of head, initial encounter (principal); S40.011A Contusion of right shoulder, initial encounter; S90.02XA Contusion of left ankle, initial encounter; I11.9 Hypertensive heart disease without heart failure; Z86.73 Personal history of transient ischemic attack (TIA), and cerebral infarction without residual deficits; Z79.82 Long term (current) use of aspirin; W01.0XXA Fall on same level from slipping, tripping and stumbling without subsequent striking against object, initial encounter; Y93.89 Activity, other specified; Y92.018 Other place in single-family (private) house as the place of occurrence of the external cause
CPT/HCPCS: 70450; 73030; 73600; 96372; 99284; J1885

== ENCOUNTER 2020-09-29 12:31 | Inpatient (IN) | payer MEDICARE, MEDICAID ==
[~2020-09-29] VITALS: Ht 162.6 cm; Wt 109.8 kg
[~2020-09-29 12:31] MED LIST changes: +SIMV-43 PO; -SIMV20TA6 PO
[2020-09-29] MEDS ORDERED: MORPHINE SULFATE 4 MG/ML CPJ (NOT FOR IM USE) IV STA (12:56)
[2020-09-29] MEDS ORDERED: ONDANSETRON HCL 4MG/2ML INJ IV STA (12:56)
[2020-09-29] MEDS ORDERED: SODIUM CHLORIDE 0.9% 1,000 ML IV ONE (13:00)
[2020-09-29 14:03] LABS: BASOPHILS % 0.7 % (0.0-2.0); EOSINOPHILS % 1.4 % (0.0-5.0); HEMATOCRIT. 31.4 % (36.0-48.0); HEMOGLOBIN. 10.5 g/dL (12.0-16.0); LYMPHOCYTES % 16.6 % (20.0-50.0); MEAN CORPUSCULAR HEMOGLOBIN 31.1 pg (28.0-32.0); MEAN CORPUSCULAR VOLUME 92.7 fL (81.0-99.0); MONOCYTES % 13.2 % (2.0-8.0); NEUTROPHILS % 68.1 % (40.0-76.0); PLATELET 207 x1000/uL (130-400); RED BLOOD CELL COUNT 3.39 mill/uL (4.2-5.4); RED CELL DISTRIBUTION WIDTH 14.8 % (11.6-14.6)
[2020-09-29 14:08] LABS: CHLORIDE 110 mEq/L (98-107)
[2020-09-29] MEDS ORDERED: MORPHINE SULFATE 4 MG/ML CPJ (NOT FOR IM USE) IV ONE (15:30)
[2020-09-29] MEDS ORDERED: ETOMIDATE 2MG/ML 10ML VIAL IV ONE (15:30)
[2020-09-29] MEDS ORDERED: ACETAMINOPHEN 325MG TABLET PO PRN (18:00)
[2020-09-29] MEDS ORDERED: ONDANSETRON HCL 4MG/2ML INJ IV PRN (18:00)
[2020-09-29] MEDS ORDERED: HYDROMORPHONE HCL/PF 2MG/ML CPJ IV ONE (19:15)
[2020-09-29] MEDS ORDERED: ENOXAPARIN 40MG/0.4ML SYR SUBCUT SCH (21:00)
[2020-09-30] MEDS: MORPHINE SULFATE 2 MG/ML CPJ (NOT FOR IM USE) IV PRN (03:56)
[2020-09-30 04:28] VITALS: BP 130/64
[2020-09-30 08:00] VITALS: BP 138/62
[2020-09-30] MEDS: HYDROCODONE/ACETAMINOPHEN 5/325MG TABLET PO PRN (09:23)
[2020-09-30 12:00] VITALS: BP 120/71
[2020-09-30 15:54] LABS: CHLORIDE 113 mEq/L (98-107)
[2020-09-30 16:00] VITALS: BP 114/62
[2020-09-30 19:24] LABS: PROTHROMBIN TIME 10.5 sec (9.6-11.0)
[2020-09-30 20:00] VITALS: BP 103/58
[2020-09-30] MEDS: ENOXAPARIN 40MG/0.4ML SYR SUBCUT SCH (20:56)
[2020-10-01] VITALS: BP 115/57
[2020-10-01] MEDS: MORPHINE SULFATE 2 MG/ML CPJ (NOT FOR IM USE) IV PRN ×4 (00:35→21:40)
[2020-10-01 04:00] VITALS: BP 156/65
[2020-10-01] MEDS ORDERED: FENTANYL CITRATE/PF 50MCG/ML 2ML VIAL ONE (07:13)
[2020-10-01] MEDS ORDERED: ROCURONIUM BROMIDE 10MG/ML VIAL 5ML IV ONE (07:13)
[2020-10-01] MEDS ORDERED: LIDOCAINE HCL 1% 20ML VIAL (Pyxis) INJ ONE (07:13)
[2020-10-01] MEDS ORDERED: PROPOFOL 200MG/20ML VIAL IV ONE (07:13)
[2020-10-01] MEDS ORDERED: BACITRACIN 50,000 UNITS/VIAL ONE (07:21)
[2020-10-01] MEDS ORDERED: BUPIVACAINE/EPINEPH/PF 0.25%/0.0005 10ML ONE (07:21)
[2020-10-01] MEDS ORDERED: SODIUM CHLORIDE 0.9% INJ 10ML FLUSH IVF ONE (07:21)
[2020-10-01] MEDS ORDERED: ROPIVACAINE HCL 10MG/ML 20 ML VIAL EPI ONE (07:44)
[2020-10-01] MEDS ORDERED: VANCOMYCIN HCL 1 GM/VIAL ONE (07:56)
[2020-10-01] MEDS ORDERED: CEFAZOLIN SODIUM 1000MG/VIAL ONE (08:00)
[2020-10-01] MEDS ORDERED: PHENYLEPHRINE HCL 10 MG/ML 1ML (IV VIAL) IV ONE (08:02)
[2020-10-01] MEDS: ENOXAPARIN 40MG/0.4ML SYR SUBCUT SCH ×2 (08:15→21:20)
[2020-10-01] MEDS ORDERED: NEOSTIGMINE METHYLSULFATE 1MG/ML 10 ML VIAL ONE (08:54)
[2020-10-01] MEDS ORDERED: GLYCOPYRROLATE 0.2 MG/ML 2ML VIAL ONE (08:55)
[2020-10-01] MEDS ORDERED: ONDANSETRON HCL 4MG/2ML INJ IV PRN (10:00)
[2020-10-01] MEDS: HYDROMORPHONE HCL/PF 2MG/ML CPJ IV PRN ×4 (10:04→10:51)
[2020-10-01] MEDS: FENTANYL CITRATE/PF 50MCG/ML 2ML VIAL IV PRN ×4 (10:20→10:58)
[2020-10-01 12:00] VITALS: BP 121/85
[2020-10-01] MEDS ORDERED: CEFAZOLIN SODIUM 1000MG/VIAL IV SCH (14:00)
[2020-10-01] MEDS: CEFAZOLIN 1000MG PREMIX 50 ML IV SCH ×2 (15:08→21:19)
[2020-10-01 16:00] VITALS: BP 153/63
[2020-10-01] MEDS: HYDROCODONE/ACETAMINOPHEN 5/325MG TABLET PO PRN (18:26)
[2020-10-01 20:00] VITALS: BP 156/68
[2020-10-02] VITALS: BP 146/90
[2020-10-02] MEDS: HYDROCODONE/ACETAMINOPHEN 5/325MG TABLET PO PRN ×5 (01:15→22:51)
[2020-10-02 04:00] VITALS: BP 165/65
[2020-10-02] MEDS: MORPHINE SULFATE 2 MG/ML CPJ (NOT FOR IM USE) IV PRN (04:57)
[2020-10-02] MEDS: CEFAZOLIN 1000MG PREMIX 50 ML IV SCH ×3 (05:17→22:38)
[2020-10-02 06:22] LABS: CHLORIDE 111 mEq/L (98-107)
[2020-10-02 06:28] LABS: BASOPHILS % 0.7 % (0.0-2.0); EOSINOPHILS % 1.1 % (0.0-5.0); HEMATOCRIT. 32.4 % (36.0-48.0); HEMOGLOBIN. 10.5 g/dL (12.0-16.0); LYMPHOCYTES % 15.7 % (20.0-50.0); MEAN CORPUSCULAR HEMOGLOBIN 30.2 pg (28.0-32.0); MEAN CORPUSCULAR VOLUME 93.2 fL (81.0-99.0); MEAN PLATELET VOLUME 8.9 fl (7.4-10.4); MONOCYTES % 14.2 % (2.0-8.0); NEUTROPHILS % 68.3 % (40.0-76.0); PLATELET 265 x1000/uL (130-400); RED BLOOD CELL COUNT 3.48 mill/uL (4.2-5.4); RED CELL DISTRIBUTION WIDTH 15.1 % (11.6-14.6)
[2020-10-02 08:00] VITALS: BP 190/62
[2020-10-02] MEDS: ENOXAPARIN 40MG/0.4ML SYR SUBCUT SCH ×2 (08:58→21:05)
[2020-10-02 12:00] VITALS: BP 149/63
[2020-10-02 16:00] VITALS: BP 132/63
[2020-10-02 22:51] VITALS: BP 132/63
== END 2020-10-02 23:30 | DRG 492 ==
LOC: ER 12:41 → 6EST 16:13 → ENRESERV 09-30 00:25
PROVIDERS: ADMIT Internal Medicine; ATTEND Internal Medicine
PROC: 0QSJ04Z Reposition Right Fibula with Internal Fixation Device, Open Approach (ICD-10-PCS; principal; 2020-10-01)
PROC: 0QSG04Z Reposition Right Tibia with Internal Fixation Device, Open Approach (ICD-10-PCS; 2020-10-01)
DX: S82.851A Displaced trimalleolar fracture of right lower leg, initial encounter for closed fracture (principal); G93.41 Metabolic encephalopathy; D64.9 Anemia, unspecified; E87.8 Other disorders of electrolyte and fluid balance, not elsewhere classified; F03.90 Unspecified dementia, unspecified severity, without behavioral disturbance, psychotic disturbance, mood disturbance, and anxiety; I10 Essential (primary) hypertension; M85.80 Other specified disorders of bone density and structure, unspecified site; Z96.653 Presence of artificial knee joint, bilateral; R53.81 Other malaise; W18.39XA Other fall on same level, initial encounter; I25.10 Atherosclerotic heart disease of native coronary artery without angina pectoris; Z79.82 Long term (current) use of aspirin; Z86.73 Personal history of transient ischemic attack (TIA), and cerebral infarction without residual deficits; Y93.89 Activity, other specified; Y92.89 Other specified places as the place of occurrence of the external cause; Y99.8 Other external cause status; Z79.899 Other long term (current) drug therapy
CPT/HCPCS: 36415; 71045; 73110; 73560; 73610; 73630; 76000; 80048; 80053; 85025; 87426; 92610; 93005; 93306; 97162; 97166; 97530; 99285; J0171; J0690; J1170; J1650; J2270; J2370; J2405; J2704; J2710; J2795; J3010; J3370; J3490; J7030; J7040

== ENCOUNTER 2020-10-02 23:35 | Inpatient (IN) | payer MEDICARE, MEDICAID ==
[~2020-10-02] VITALS: Ht 162.6 cm; Wt 109.8 kg
[2020-10-02 23:45] VITALS: BP 133/70
[2020-10-03] MEDS ORDERED: MORPHINE SULFATE 2 MG/ML CPJ (NOT FOR IM USE) IV PRN (02:30)
[2020-10-03] MEDS ORDERED: ONDANSETRON HCL 4MG/2ML INJ IV PRN (02:30)
[2020-10-03] MEDS: HYDROCODONE/ACETAMINOPHEN 5/325MG TABLET PO PRN ×3 (03:42→12:35)
[2020-10-03] MEDS: CEFAZOLIN 1000MG PREMIX 50 ML IV SCH ×3 (05:52→22:00)
[2020-10-03] MEDS ORDERED: CEFAZOLIN SODIUM 1000MG/VIAL IV SCH (06:00)
[2020-10-03 07:20] LABS: CHLORIDE 111 mEq/L (98-107)
[2020-10-03 07:44] LABS: BASOPHILS % 1.1 % (0.0-2.0); EOSINOPHILS % 3.6 % (0.0-5.0); HEMATOCRIT. 28.2 % (36.0-48.0); HEMOGLOBIN. 9.3 g/dL (12.0-16.0); LYMPHOCYTES % 29.2 % (20.0-50.0); MEAN CORPUSCULAR HEMOGLOBIN 30.4 pg (28.0-32.0); MEAN CORPUSCULAR VOLUME 92.4 fL (81.0-99.0); MEAN PLATELET VOLUME 8.3 fl (7.4-10.4); MONOCYTES % 14.8 % (2.0-8.0); NEUTROPHILS % 51.3 % (40.0-76.0); PLATELET 266 x1000/uL (130-400); RED BLOOD CELL COUNT 3.05 mill/uL (4.2-5.4); RED CELL DISTRIBUTION WIDTH 15.1 % (11.6-14.6)
[2020-10-03 08:00] VITALS: BP 152/75
[2020-10-03] MEDS: ENOXAPARIN 40MG/0.4ML SYR SUBCUT SCH ×2 (08:48→21:57)
[2020-10-03] MEDS ORDERED: NA PHOS,M-B/NA PHOS,DI-BA ENEMA 118ML PR PRN (10:15)
[2020-10-03] MEDS: LACTULOSE 20G/30ML UDC PO SCH ×3 (12:33→21:57)
[2020-10-03 20:00] VITALS: BP 120/71
[2020-10-04 01:31] LABS: FOLIC ACID (FOLATE) SERUM > 20.00 ng/mL (>5.38); VITAMIN B12 SERUM 1757 pg/mL (211-911)
[2020-10-04] MEDS: ACETAMINOPHEN 325MG TABLET PO PRN (05:13)
[2020-10-04] MEDS: CEFAZOLIN 1000MG PREMIX 50 ML IV SCH (06:00)
[2020-10-04 06:52] VITALS: BP 101/77
[2020-10-04] MEDS: ENOXAPARIN 40MG/0.4ML SYR SUBCUT SCH ×2 (09:31→21:56)
[2020-10-04] MEDS: HYDROCODONE/ACETAMINOPHEN 5/325MG TABLET PO PRN (10:56)
[2020-10-04 20:00] VITALS: BP_SYST 107; BP_SYST 129; BP_DIAS 56; BP_DIAS 68
[2020-10-05] MEDS: HYDROCODONE/ACETAMINOPHEN 5/325MG TABLET PO PRN ×2 (01:15→09:03)
[2020-10-05] MEDS: ACETAMINOPHEN 325MG TABLET PO PRN (05:59)
[2020-10-05 08:00] VITALS: BP 189/89
[2020-10-05] MEDS: ENOXAPARIN 40MG/0.4ML SYR SUBCUT SCH ×2 (08:42→22:08)
[2020-10-05 08:57] LABS: BASOPHILS % 1.4 % (0.0-2.0); EOSINOPHILS % 3.8 % (0.0-5.0); HEMATOCRIT. 29.7 % (36.0-48.0); HEMOGLOBIN. 9.8 g/dL (12.0-16.0); LYMPHOCYTES % 27.1 % (20.0-50.0); MEAN CORPUSCULAR HEMOGLOBIN 30.5 pg (28.0-32.0); MEAN CORPUSCULAR VOLUME 92.8 fL (81.0-99.0); MEAN PLATELET VOLUME 8.8 fl (7.4-10.4); MONOCYTES % 10.6 % (2.0-8.0); NEUTROPHILS % 57.1 % (40.0-76.0); PLATELET 363 x1000/uL (130-400)
[2020-10-05 09:09] LABS: CHLORIDE 109 mEq/L (98-107)
[2020-10-05 09:19] LABS: PHOSPHORUS 2.4 mg/dL (2.5-4.9)
[2020-10-05 09:20] LABS: ETHANOL BLOOD < 10 mg/dL
[2020-10-05 09:23] LABS: TOTAL IRON BINDING CAPACITY 293 ug/dL (250-450)
[2020-10-05 09:25] LABS: T4 FREE 1.22 ng/dL (0.76-1.46)
[2020-10-05] MEDS: LACTULOSE 20G/30ML UDC PO SCH ×2 (13:54→22:08)
[2020-10-05] MEDS: HYDROCODONE/ACETAMINOPHEN 10/325MG TABLET PO PRN ×2 (14:05→22:08)
[2020-10-05 20:00] VITALS: BP 125/74
[2020-10-06] MEDS: LACTULOSE 20G/30ML UDC PO SCH ×3 (05:58→21:54)
[2020-10-06] MEDS: HYDROCODONE/ACETAMINOPHEN 5/325MG TABLET PO PRN (06:05)
[2020-10-06 06:55] LABS: HEMATOCRIT. 29.8 % (36.0-48.0); HEMOGLOBIN. 9.7 g/dL (12.0-16.0); LYMPHOCYTES % 34.6 % (20.0-50.0); MEAN CORPUSCULAR HEMOGLOBIN 30.3 pg (28.0-32.0); MEAN CORPUSCULAR VOLUME 93.2 fL (81.0-99.0); MEAN PLATELET VOLUME 8.3 fl (7.4-10.4); MONOCYTES % 13.8 % (2.0-8.0); NEUTROPHILS % 45.6 % (40.0-76.0); PLATELET 373 x1000/uL (130-400); RED CELL DISTRIBUTION WIDTH 14.9 % (11.6-14.6)
[2020-10-06 07:11] LABS: CHLORIDE 110 mEq/L (98-107)
[2020-10-06 08:06] VITALS: BP 143/65
[2020-10-06] MEDS: ENOXAPARIN 40MG/0.4ML SYR SUBCUT SCH ×2 (08:38→21:55)
[2020-10-06] MEDS ORDERED: POTASSIUM-SODIUM PHOSPHATE POWDER PACKET PO NR (09:00)
[2020-10-06] MEDS: ASCORBIC ACID 500 MG TABLET PO SCH (09:32)
[2020-10-06] MEDS: FERROUS SULFATE 325MG TABLET PO SCH ×3 (09:32→17:06)
[2020-10-06 13:50] VITALS: BP 102/39
[2020-10-06] MEDS: HYDROCODONE/ACETAMINOPHEN 10/325MG TABLET PO PRN ×2 (14:00→22:53)
[2020-10-06 20:00] VITALS: BP 147/54
[2020-10-07] MEDS: LACTULOSE 20G/30ML UDC PO SCH ×3 (05:13→21:00)
[2020-10-07] MEDS: HYDROCODONE/ACETAMINOPHEN 10/325MG TABLET PO PRN ×4 (05:14→20:55)
[2020-10-07 07:25] LABS: CLARITY URINE CLOUDY (CLEAR); COLOR URINE YELLOW (YELLOW); KETONES URINE NEGATIVE (NEGATIVE); LEUKOCYTE ESTERASE URINE 2+ (NEGATIVE); NITRITE URINE NEGATIVE (NEGATIVE); OCCULT BLOOD URINE 2+ (NEGATIVE); PH URINE 7.5 (4.5-8.0); PROTEIN URINE TRACE (NEGATIVE)
[2020-10-07 08:00] VITALS: BP 137/59
[2020-10-07] MEDS: ENOXAPARIN 40MG/0.4ML SYR SUBCUT SCH ×2 (08:32→20:55)
[2020-10-07] MEDS: FERROUS SULFATE 325MG TABLET PO SCH ×3 (08:32→16:50)
[2020-10-07] MEDS: ASCORBIC ACID 500 MG TABLET PO SCH (08:32)
[2020-10-07] MEDS: LEVOFLOXACIN 500MG TABLET PO SCH (13:25)
[2020-10-07] MEDS ORDERED: LEVOFLOXACIN 500MG PREMIX 100 ML IV SCH (15:00)
[2020-10-07 20:00] VITALS: BP 127/64
[2020-10-07] MEDS: MUPIROCIN 2% OINT 22GM NS SCH (20:56)
[2020-10-08] MEDS: ACETAMINOPHEN 325MG TABLET PO PRN (03:21)
[2020-10-08] MEDS: LACTULOSE 20G/30ML UDC PO SCH ×3 (05:29→22:00)
[2020-10-08] MEDS: HYDROCODONE/ACETAMINOPHEN 10/325MG TABLET PO PRN ×3 (06:54→22:16)
[2020-10-08 08:00] VITALS: BP 105/57
[2020-10-08] MEDS: ENOXAPARIN 40MG/0.4ML SYR SUBCUT SCH ×3 (08:19→22:14)
[2020-10-08] MEDS: FERROUS SULFATE 325MG TABLET PO SCH ×3 (08:19→16:40)
[2020-10-08] MEDS: ASCORBIC ACID 500 MG TABLET PO SCH (08:19)
[2020-10-08] MEDS: MUPIROCIN 2% OINT 22GM NS SCH ×3 (08:25→22:15)
[2020-10-08] MEDS: LEVOFLOXACIN 500MG TABLET PO SCH (11:27)
[2020-10-08 20:00] VITALS: BP 119/51
[2020-10-09] MEDS: HYDROCODONE/ACETAMINOPHEN 10/325MG TABLET PO PRN ×3 (04:22→20:34)
[2020-10-09] MEDS: LACTULOSE 20G/30ML UDC PO SCH ×3 (05:52→21:24)
[2020-10-09 07:21] LABS: CHLORIDE 104 mEq/L (98-107)
[2020-10-09 07:29] LABS: HEMATOCRIT. 29.5 % (36.0-48.0); HEMOGLOBIN. 9.7 g/dL (12.0-16.0); MEAN CORPUSCULAR HEMOGLOBIN 30.6 pg (28.0-32.0); MEAN CORPUSCULAR VOLUME 93.1 fL (81.0-99.0); MEAN PLATELET VOLUME 8.4 fl (7.4-10.4); PLATELET 394 x1000/uL (130-400); RED BLOOD CELL COUNT 3.17 mill/uL (4.2-5.4); RED CELL DISTRIBUTION WIDTH 14.8 % (11.6-14.6)
[2020-10-09 07:32] LABS: PHOSPHORUS 2.9 mg/dL (2.5-4.9)
[2020-10-09 08:00] VITALS: BP 151/58
[2020-10-09] MEDS: MUPIROCIN 2% OINT 22GM NS SCH ×2 (09:06→20:31)
[2020-10-09] MEDS: ASCORBIC ACID 500 MG TABLET PO SCH (09:06)
[2020-10-09] MEDS: FERROUS SULFATE 325MG TABLET PO SCH ×3 (09:06→17:17)
[2020-10-09] MEDS: ACETAMINOPHEN 325MG TABLET PO PRN (09:07)
[2020-10-09] MEDS: ENOXAPARIN 40MG/0.4ML SYR SUBCUT SCH ×2 (09:08→20:32)
[2020-10-09] MEDS: LEVOFLOXACIN 500MG TABLET PO SCH (11:30)
[2020-10-09] MEDS: MAGNESIUM OXIDE 400MG TABLET PO SCH (17:17)
[2020-10-09 20:00] VITALS: BP 102/54
[2020-10-09 21:11] LABS: PLATELET ESTIMATE NORMAL
[2020-10-10] MEDS: MAGNESIUM OXIDE 400MG TABLET PO SCH ×2 (01:52→13:01)
[2020-10-10] MEDS: LACTULOSE 20G/30ML UDC PO SCH ×3 (06:52→21:36)
[2020-10-10 08:00] VITALS: BP 94/67
[2020-10-10] MEDS: FERROUS SULFATE 325MG TABLET PO SCH ×3 (08:34→17:14)
[2020-10-10] MEDS: ASCORBIC ACID 500 MG TABLET PO SCH (08:34)
[2020-10-10] MEDS: MUPIROCIN 2% OINT 22GM NS SCH ×2 (08:34→21:36)
[2020-10-10] MEDS: ENOXAPARIN 40MG/0.4ML SYR SUBCUT SCH (08:34)
[2020-10-10] MEDS: LEVOFLOXACIN 500MG TABLET PO SCH (11:23)
[2020-10-10] MEDS: ACETAMINOPHEN 325MG TABLET PO PRN (14:23)
[2020-10-10] MEDS: HYDROCODONE/ACETAMINOPHEN 10/325MG TABLET PO PRN (16:05)
[2020-10-10 20:00] VITALS: BP 98/47
[2020-10-10] MEDS: ENOXAPARIN 30MG/0.3ML SYR SUBCUT SCH (21:36)
[2020-10-10 22:23] VITALS: BP 98/47
[2020-10-11] MEDS: MAGNESIUM OXIDE 400MG TABLET PO SCH ×2 (00:13→12:41)
[2020-10-11] MEDS: HYDROCODONE/ACETAMINOPHEN 10/325MG TABLET PO PRN ×5 (00:14→23:44)
[2020-10-11] MEDS: LACTULOSE 20G/30ML UDC PO SCH ×3 (06:20→22:00)
[2020-10-11 08:00] VITALS: BP 121/53
[2020-10-11 08:11] LABS: HEMATOCRIT. 31.3 % (36.0-48.0); HEMOGLOBIN. 10.2 g/dL (12.0-16.0); MEAN CORPUSCULAR HEMOGLOBIN 30.6 pg (28.0-32.0); MEAN CORPUSCULAR VOLUME 93.7 fL (81.0-99.0); MEAN PLATELET VOLUME 9.1 fl (7.4-10.4); PLATELET 406 x1000/uL (130-400); RED BLOOD CELL COUNT 3.34 mill/uL (4.2-5.4); RED CELL DISTRIBUTION WIDTH 14.9 % (11.6-14.6)
[2020-10-11] MEDS: FERROUS SULFATE 325MG TABLET PO SCH ×3 (08:41→18:02)
[2020-10-11] MEDS: ASCORBIC ACID 500 MG TABLET PO SCH (08:41)
[2020-10-11] MEDS: ENOXAPARIN 30MG/0.3ML SYR SUBCUT SCH ×2 (08:41→21:00)
[2020-10-11] MEDS: MUPIROCIN 2% OINT 22GM NS SCH ×2 (08:41→21:00)
[2020-10-11 09:19] LABS: PHOSPHORUS 2.8 mg/dL (2.5-4.9)
[2020-10-11 11:37] LABS: PLATELET ESTIMATE SLIGHTLY INCREASED
[2020-10-11] MEDS: LEVOFLOXACIN 500MG TABLET PO SCH (12:42)
[2020-10-11 15:19] LABS: 25-HYDROXY VITAMIN D3 20 ng/mL (.)
[2020-10-11 20:00] VITALS: BP 98/54
[2020-10-12] MEDS: HYDROCODONE/ACETAMINOPHEN 10/325MG TABLET PO PRN ×5 (04:04→19:14)
[2020-10-12] MEDS: LACTULOSE 20G/30ML UDC PO SCH ×3 (06:00→22:13)
[2020-10-12 08:00] VITALS: BP 129/70
[2020-10-12] MEDS: MUPIROCIN 2% OINT 22GM NS SCH (08:28)
[2020-10-12] MEDS: FERROUS SULFATE 325MG TABLET PO SCH ×3 (08:28→16:26)
[2020-10-12] MEDS: ASCORBIC ACID 500 MG TABLET PO SCH (08:28)
[2020-10-12] MEDS: ENOXAPARIN 30MG/0.3ML SYR SUBCUT SCH ×2 (08:29→22:13)
[2020-10-12] MEDS: LEVOFLOXACIN 500MG TABLET PO SCH (10:48)
[2020-10-12] MEDS ORDERED: ERGOCALCIFEROL 50000UNITS CAPSULE PO SCH (13:00)
[2020-10-12] MEDS ORDERED: SODIUM POLYSTYRENE SULFONATE 15 G/60 ML BOT PO NR (16:30)
[2020-10-12 20:00] VITALS: BP 106/47
[2020-10-13] MEDS: HYDROCODONE/ACETAMINOPHEN 10/325MG TABLET PO PRN ×4 (05:05→18:03)
[2020-10-13] MEDS: LACTULOSE 20G/30ML UDC PO SCH ×5 (05:05→17:47)
[2020-10-13 08:00] VITALS: BP 129/68
[2020-10-13] MEDS: FERROUS SULFATE 325MG TABLET PO SCH ×3 (09:24→17:47)
[2020-10-13] MEDS: ENOXAPARIN 30MG/0.3ML SYR SUBCUT SCH ×2 (09:24→20:51)
[2020-10-13] MEDS: ASCORBIC ACID 500 MG TABLET PO SCH (09:24)
[2020-10-13] MEDS ORDERED: LACTULOSE 20G/30ML UDC PO STA (09:32)
[2020-10-13 20:00] VITALS: BP 128/64
[2020-10-13] MEDS: ACETAMINOPHEN 325MG TABLET PO PRN (20:52)
[2020-10-13] MEDS: ZOLPIDEM TARTRATE 5MG TABLET PO PRN (22:59)
[2020-10-14] MEDS: ACETAMINOPHEN 325MG TABLET PO PRN (07:04)
[2020-10-14 07:12] LABS: CHLORIDE 103 mEq/L (98-107)
[2020-10-14 08:00] VITALS: BP 101/53
[2020-10-14] MEDS: ENOXAPARIN 30MG/0.3ML SYR SUBCUT SCH ×2 (08:51→21:49)
[2020-10-14] MEDS: ASCORBIC ACID 500 MG TABLET PO SCH (08:51)
[2020-10-14] MEDS: FERROUS SULFATE 325MG TABLET PO SCH ×4 (08:51→16:35)
[2020-10-14] MEDS: HYDROCODONE/ACETAMINOPHEN 10/325MG TABLET PO PRN ×3 (10:26→23:50)
[2020-10-14] MEDS: BISACODYL 10MG SUPP PR SCH ×2 (14:00→16:35)
[2020-10-14] MEDS ORDERED: SORBITOL 70% SOLN 30ML PO SCH (14:00)
[2020-10-14] MEDS ORDERED: NA PHOS,M-B/NA PHOS,DI-BA ENEMA 118ML PR PRN (17:45)
[2020-10-14 20:00] VITALS: BP 135/89
[2020-10-14] MEDS: ZOLPIDEM TARTRATE 5MG TABLET PO PRN (21:49)
[2020-10-15] MEDS: ACETAMINOPHEN 325MG TABLET PO PRN (05:18)
[2020-10-15 08:00] VITALS: BP 101/49
[2020-10-15] MEDS: ASCORBIC ACID 500 MG TABLET PO SCH (08:59)
[2020-10-15] MEDS: FERROUS SULFATE 325MG TABLET PO SCH ×3 (08:59→17:09)
[2020-10-15] MEDS: ENOXAPARIN 30MG/0.3ML SYR SUBCUT SCH ×2 (08:59→20:26)
[2020-10-15] MEDS: HYDROCODONE/ACETAMINOPHEN 10/325MG TABLET PO PRN ×2 (09:52→16:36)
[2020-10-15 20:00] VITALS: BP 119/46
[2020-10-15] MEDS: ZOLPIDEM TARTRATE 5MG TABLET PO PRN (20:26)
[2020-10-16] MEDS: HYDROCODONE/ACETAMINOPHEN 10/325MG TABLET PO PRN ×4 (03:20→16:48)
[2020-10-16 06:47] LABS: EOSINOPHILS % 3.6 % (0.0-5.0); HEMATOCRIT. 32.6 % (36.0-48.0); HEMOGLOBIN. 10.7 g/dL (12.0-16.0); LYMPHOCYTES % 37.4 % (20.0-50.0); MEAN CORPUSCULAR HEMOGLOBIN 30.9 pg (28.0-32.0); MEAN CORPUSCULAR VOLUME 94.6 fL (81.0-99.0); MONOCYTES % 10.8 % (2.0-8.0); NEUTROPHILS % 47.2 % (40.0-76.0); PLATELET 98 x1000/uL (130-400); RED BLOOD CELL COUNT 3.44 mill/uL (4.2-5.4)
[2020-10-16 07:09] LABS: CHLORIDE 106 mEq/L (98-107)
[2020-10-16 07:23] LABS: PHOSPHORUS 3.8 mg/dL (2.5-4.9)
[2020-10-16 08:25] VITALS: BP 104/44
[2020-10-16] MEDS: FERROUS SULFATE 325MG TABLET PO SCH ×3 (08:39→16:18)
[2020-10-16] MEDS: ASCORBIC ACID 500 MG TABLET PO SCH (08:39)
[2020-10-16] MEDS: ENOXAPARIN 30MG/0.3ML SYR SUBCUT SCH ×2 (08:39→21:41)
[2020-10-16] MEDS ORDERED: BISACODYL 10MG SUPP PR SCH (13:30)
[2020-10-16] MEDS ORDERED: SODIUM POLYSTYRENE SULFONATE 15 G/60 ML BOT PO SCH (15:00)
[2020-10-16 16:09] LABS: BASOPHILS % 0.9 % (0.0-2.0); EOSINOPHILS % 1.9 % (0.0-5.0); HEMATOCRIT. 33.1 % (36.0-48.0); HEMOGLOBIN. 10.6 g/dL (12.0-16.0); LYMPHOCYTES % 26.9 % (20.0-50.0); MEAN CORPUSCULAR HEMOGLOBIN 29.9 pg (28.0-32.0); MEAN CORPUSCULAR VOLUME 93.6 fL (81.0-99.0); MEAN PLATELET VOLUME 8.7 fl (7.4-10.4); NEUTROPHILS % 59.3 % (40.0-76.0); PLATELET 394 x1000/uL (130-400); RED BLOOD CELL COUNT 3.54 mill/uL (4.2-5.4); RED CELL DISTRIBUTION WIDTH 14.8 % (11.6-14.6)
[2020-10-16 16:16] LABS: CHLORIDE 104 mEq/L (98-107)
[2020-10-16] MEDS: DOCUSATE SODIUM 100MG CAPSULE PO SCH (16:18)
[2020-10-16 20:00] VITALS: BP 93/38
[2020-10-16] MEDS: SENNOSIDES/DOCUSATE SOD 8.6/50MG TABLET PO SCH (21:36)
[2020-10-16] MEDS: ZOLPIDEM TARTRATE 5MG TABLET PO PRN (21:43)
[2020-10-17] MEDS: HYDROCODONE/ACETAMINOPHEN 10/325MG TABLET PO PRN ×3 (07:13→17:44)
[2020-10-17 08:10] VITALS: BP 101/46
[2020-10-17 08:34] LABS: BASOPHILS % 0.8 % (0.0-2.0); EOSINOPHILS % 1.9 % (0.0-5.0); HEMATOCRIT. 28.8 % (36.0-48.0); HEMOGLOBIN. 9.4 g/dL (12.0-16.0); LYMPHOCYTES % 26.4 % (20.0-50.0); MEAN CORPUSCULAR HEMOGLOBIN 30.8 pg (28.0-32.0); MEAN CORPUSCULAR VOLUME 94.1 fL (81.0-99.0); MEAN PLATELET VOLUME 8.3 fl (7.4-10.4); MONOCYTES % 13.6 % (2.0-8.0); NEUTROPHILS % 57.3 % (40.0-76.0); PLATELET 351 x1000/uL (130-400); RED BLOOD CELL COUNT 3.06 mill/uL (4.2-5.4); RED CELL DISTRIBUTION WIDTH 14.7 % (11.6-14.6)
[2020-10-17] MEDS: POLYETHYLENE GLYCOL 3350 (17GM) 1 DOSE PACK PO SCH (08:53)
[2020-10-17] MEDS: DOCUSATE SODIUM 100MG CAPSULE PO SCH ×2 (08:54→16:31)
[2020-10-17] MEDS: ASCORBIC ACID 500 MG TABLET PO SCH (08:54)
[2020-10-17] MEDS: FERROUS SULFATE 325MG TABLET PO SCH ×3 (08:54→16:31)
[2020-10-17 08:55] LABS: CHLORIDE 105 mEq/L (98-107)
[2020-10-17] MEDS: ENOXAPARIN 30MG/0.3ML SYR SUBCUT SCH ×2 (08:55→20:57)
[2020-10-17 09:01] LABS: PHOSPHORUS 3.5 mg/dL (2.5-4.9)
[2020-10-17 09:03] LABS: CREATINE KINASE 89 IU/L (26-192)
[2020-10-17] MEDS ORDERED: DOCU-150 PO (16:16)
[2020-10-17] MEDS ORDERED: FERR325T6 MT (16:16)
[2020-10-17 20:00] VITALS: BP 130/78
[2020-10-17] MEDS: SENNOSIDES/DOCUSATE SOD 8.6/50MG TABLET PO SCH (20:57)
[2020-10-18] MEDS: HYDROCODONE/ACETAMINOPHEN 10/325MG TABLET PO PRN ×3 (04:27→15:51)
[2020-10-18 08:00] VITALS: BP 110/58
[2020-10-18] MEDS: ASCORBIC ACID 500 MG TABLET PO SCH (08:37)
[2020-10-18] MEDS: DOCUSATE SODIUM 100MG CAPSULE PO SCH (08:37)
[2020-10-18] MEDS: POLYETHYLENE GLYCOL 3350 (17GM) 1 DOSE PACK PO SCH (08:37)
[2020-10-18] MEDS: FERROUS SULFATE 325MG TABLET PO SCH ×2 (08:37→12:48)
[2020-10-18] MEDS: ENOXAPARIN 30MG/0.3ML SYR SUBCUT SCH (08:37)
[2020-10-18 12:50] VITALS: BP 110/58
[2020-10-18 15:51] VITALS: BP 110/58
== END 2020-10-18 17:40 | disposition home health service (06) | DRG 562 ==
PROVIDERS: ADMIT Physical Medicine & Rehabilitation Spinal Cord Injury Medicine; ATTEND Internal Medicine
PROC: 4A10X4Z Monitoring of Central Nervous Electrical Activity, External Approach (ICD-10-PCS; principal; 2020-10-16)
DX: S82.841A Displaced bimalleolar fracture of right lower leg, initial encounter for closed fracture (principal); G92 Toxic encephalopathy; E43 Unspecified severe protein-calorie malnutrition; N39.0 Urinary tract infection, site not specified; N17.9 Acute kidney failure, unspecified; E87.1 Hypo-osmolality and hyponatremia; K56.7 Ileus, unspecified; Z68.41 Body mass index [BMI] 40.0-44.9, adult; D64.9 Anemia, unspecified; E78.00 Pure hypercholesterolemia, unspecified; E87.8 Other disorders of electrolyte and fluid balance, not elsewhere classified; F03.90 Unspecified dementia, unspecified severity, without behavioral disturbance, psychotic disturbance, mood disturbance, and anxiety; I25.10 Atherosclerotic heart disease of native coronary artery without angina pectoris; I10 Essential (primary) hypertension; Z96.653 Presence of artificial knee joint, bilateral; W18.39XA Other fall on same level, initial encounter; R53.81 Other malaise; R26.9 Unspecified abnormalities of gait and mobility; M19.042 Primary osteoarthritis, left hand; M19.041 Primary osteoarthritis, right hand; M19.032 Primary osteoarthritis, left wrist; M19.031 Primary osteoarthritis, right wrist; E61.1 Iron deficiency; E55.9 Vitamin D deficiency, unspecified; D69.6 Thrombocytopenia, unspecified; R20.0 Anesthesia of skin; E87.5 Hyperkalemia; E66.01 Morbid (severe) obesity due to excess calories; Z82.49 Family history of ischemic heart disease and other diseases of the circulatory system; Z86.73 Personal history of transient ischemic attack (TIA), and cerebral infarction without residual deficits; Z91.81 History of falling; Y93.89 Activity, other specified; Y92.89 Other specified places as the place of occurrence of the external cause; Y99.8 Other external cause status
CPT/HCPCS: 36415; 70551; 73100; 73120; 74018; 80048; 80053; 80320; 81003; 82140; 82306; 82533; 82550; 82607; 82746; 83036; 83540; 83550; 83735; 83930; 84100; 84134; 84439; 84443; 84481; 85025; 92523; 92610; 93970; 97110; 97162; 97166; 97530; 97535; 97760; A4565; J0690; J1650; J1956; J7040; G0480

== ENCOUNTER 2021-04-27 02:44 | Inpatient (IN) | payer MEDICARE, MEDICAID ==
[~2021-04-27] VITALS: Ht 162.6 cm; Wt 87.1 kg
[~2021-04-27 02:44] MED LIST changes: -ACET1TAB14 PO; -ASPI-986 PO; -BENA40TA66 PO; +DOCU-150 PO; +FERR325T6 MT; -LEVO500T2 PO
[2021-04-27 04:50] LABS: BASOPHILS % 2.3 % (0.0-2.0); EOSINOPHILS % 3.1 % (0.0-5.0); HEMATOCRIT. 34.6 % (36.0-48.0); HEMOGLOBIN. 11.6 g/dL (12.0-16.0); LYMPHOCYTES % 25.4 % (20.0-50.0); MEAN CORPUSCULAR HEMOGLOBIN 31.3 pg (28.0-32.0); MEAN CORPUSCULAR VOLUME 93.5 fL (81.0-99.0); MEAN PLATELET VOLUME 7.5 fl (7.4-10.4); MONOCYTES % 10.5 % (2.0-8.0); NEUTROPHILS % 58.7 % (40.0-76.0); PLATELET 286 x1000/uL (130-400); RED CELL DISTRIBUTION WIDTH 15.6 % (11.6-14.6)
[2021-04-27 04:56] LABS: CHLORIDE 109 mEq/L (98-107)
[2021-04-27 05:02] LABS: PARTIAL THROMBOPLASTIN TIME 26.8 sec (23.4-31.0); PROTHROMBIN TIME 10.3 sec (9.6-11.0)
[2021-04-27] MEDS ORDERED: MORPHINE SULFATE 4 MG/ML CPJ (NOT FOR IM USE) IV STA (05:02)
[2021-04-27] MEDS ORDERED: ONDANSETRON HCL 4MG/2ML INJ IV STA (05:02)
[2021-04-27] MEDS ORDERED: SODIUM CHLORIDE 0.9% 1,000 ML IV ONE (05:15)
[2021-04-27] MEDS ORDERED: ASPIRIN 81MG TABLET PO ONE (06:00)
[2021-04-27] MEDS ORDERED: NITROGLYCERIN 0.4MG TABLET SL SL PRN (06:00)
[2021-04-27] MEDS ORDERED: ONDANSETRON HCL 4MG/2ML INJ IV PRN (08:45)
[2021-04-27] MEDS ORDERED: ASPIRIN 81MG TABLET PO SCH (09:00)
[2021-04-27] MEDS ORDERED: MORPHINE SULFATE 2 MG/ML CPJ (NOT FOR IM USE) IV NR (13:45)
[2021-04-27] MEDS ORDERED: NALOXONE HCL 0.4MG/ML VIAL IV PRN (14:00)
[2021-04-27 17:30] VITALS: BP 157/114
[2021-04-27 20:00] VITALS: BP 114/66
[2021-04-27] MEDS: HYDROCODONE/ACETAMINOPHEN 5/325MG TABLET PO PRN (22:12)
[2021-04-27] MEDS ORDERED: BENA10TA75 PO (23:42)
[2021-04-28] VITALS: BP 121/50
[2021-04-28 04:00] VITALS: BP 129/75
[2021-04-28] MEDS: HYDROCODONE/ACETAMINOPHEN 5/325MG TABLET PO PRN ×3 (04:02→17:33)
[2021-04-28 08:19] VITALS: BP 115/59
[2021-04-28 11:40] VITALS: BP 125/79
[2021-04-28 16:00] VITALS: BP 143/80
[2021-04-28 16:50] LABS: CLARITY URINE CLOUDY (CLEAR); COLOR URINE YELLOW (YELLOW); KETONES URINE NEGATIVE (NEGATIVE); LEUKOCYTE ESTERASE URINE 2+ (NEGATIVE); NITRITE URINE NEGATIVE (NEGATIVE); OCCULT BLOOD URINE TRACE (NEGATIVE); PH URINE 7.5 (4.5-8.0); PROTEIN URINE 1+ (NEGATIVE); SPECIFIC GRAVITY URINE 1.018 (1.005-1.030)
[2021-04-28] MEDS ORDERED: CEFTRIAXONE 1,000 MG in DEXTROSE 5% WATER 50 ML IV SCH ×3 (17:30→20:00)
[2021-04-28 20:00] VITALS: BP 120/52
[2021-04-28 21:50] LABS: BASOPHILS % 1.1 % (0.0-2.0); EOSINOPHILS % 4.1 % (0.0-5.0); LYMPHOCYTES % 22.2 % (20.0-50.0); MEAN CORPUSCULAR HEMOGLOBIN 30.5 pg (28.0-32.0); MEAN CORPUSCULAR VOLUME 91.5 fL (81.0-99.0); MEAN PLATELET VOLUME 7.9 fl (7.4-10.4); MONOCYTES % 13.6 % (2.0-8.0); PLATELET 308 x1000/uL (130-400); RED CELL DISTRIBUTION WIDTH 15.3 % (11.6-14.6)
[2021-04-28] MEDS: ZOLPIDEM TARTRATE 5MG TABLET PO PRN (22:19)
[2021-04-28] MEDS: MECLIZINE 25MG TABLET PO PRN (22:19)
[2021-04-28 22:21] LABS: CHLORIDE 112 mEq/L (98-107)
[2021-04-28] MEDS ORDERED: CEFTRIAXONE 1,000 MG in DEXTROSE 5% WATER 50 ML IV NR (23:59)
[2021-04-29] VITALS: BP 133/67
[2021-04-29] MEDS: HYDROCODONE/ACETAMINOPHEN 5/325MG TABLET PO PRN ×2 (00:55→19:50)
[2021-04-29 08:07] VITALS: BP 124/61
[2021-04-29 10:30] LABS: VITAMIN B12 SERUM 567 pg/mL (211-911)
[2021-04-29 12:04] VITALS: BP 113/58
[2021-04-29] MEDS: CEFTRIAXONE 1,000 MG in DEXTROSE 5% WATER 50 ML IV SCH (14:04)
[2021-04-29] MEDS: ACETAMINOPHEN 325MG TABLET PO PRN (14:05)
[2021-04-29 16:03] VITALS: BP 133/71
[2021-04-29 20:00] VITALS: BP 136/53
[2021-04-29] MEDS: MECLIZINE 25MG TABLET PO PRN (23:12)
[2021-04-29] MEDS: ZOLPIDEM TARTRATE 5MG TABLET PO PRN (23:12)
[2021-04-30] VITALS: BP 149/81
[2021-04-30 04:18] VITALS: BP 152/62
[2021-04-30 08:07] VITALS: BP 121/79
[2021-04-30] MEDS ORDERED: LORAZEPAM 0.5MG TABLET PO NR (11:30)
[2021-04-30 12:04] VITALS: BP 129/50
[2021-04-30] MEDS: CEFTRIAXONE 1,000 MG in DEXTROSE 5% WATER 50 ML IV SCH (14:20)
[2021-04-30 16:19] VITALS: BP 130/65
[2021-04-30] MEDS ORDERED: LEVO500T89 MT (17:10)
[2021-04-30] MEDS: ACETAMINOPHEN 325MG TABLET PO PRN (18:37)
[2021-04-30 20:00] VITALS: BP 145/54
[2021-04-30] MEDS: HYDROCODONE/ACETAMINOPHEN 5/325MG TABLET PO PRN (20:30)
[2021-05-01] VITALS: BP 130/75
[2021-05-01] MEDS: HYDROCODONE/ACETAMINOPHEN 5/325MG TABLET PO PRN ×3 (02:20→17:46)
[2021-05-01 04:00] VITALS: BP 137/66
[2021-05-01] MEDS ORDERED: LORAZEPAM 2MG/ML CPJ IV SCH ×2 (07:53→08:00)
[2021-05-01 08:00] VITALS: BP 111/67
[2021-05-01 12:00] VITALS: BP 106/58
[2021-05-01] MEDS: CEFTRIAXONE 1,000 MG in DEXTROSE 5% WATER 50 ML IV SCH (13:23)
[2021-05-01 16:00] VITALS: BP 109/71
[2021-05-01] MEDS: ACETAMINOPHEN 325MG TABLET PO PRN (18:26)
[2021-05-01 20:00] VITALS: BP 96/57
[2021-05-01] MEDS: MEMANTINE HCL 5MG TABLET PO SCH (21:56)
[2021-05-01] MEDS: ZOLPIDEM TARTRATE 5MG TABLET PO PRN (22:07)
[2021-05-02] VITALS: BP 112/77
[2021-05-02] MEDS: HYDROCODONE/ACETAMINOPHEN 5/325MG TABLET PO PRN ×2 (00:37→06:33)
[2021-05-02 04:00] VITALS: BP 115/66
[2021-05-02 08:00] VITALS: BP 124/88
[2021-05-02] MEDS: MEMANTINE HCL 5MG TABLET PO SCH ×2 (09:12→20:05)
[2021-05-02] MEDS: CEFTRIAXONE 1,000 MG in DEXTROSE 5% WATER 50 ML IV SCH (14:09)
[2021-05-02 16:00] VITALS: BP 110/84
[2021-05-02 18:48] VITALS: BP 110/84
[2021-05-02 20:00] VITALS: BP 136/85
== END 2021-05-02 20:25 | DRG 74 ==
LOC: ER 02:44 → ENRESERV 16:22 → 6WST 18:25
PROVIDERS: ADMIT Internal Medicine; ATTEND Internal Medicine
DX: G90.8 Other disorders of autonomic nervous system (principal); G93.40 Encephalopathy, unspecified; N39.0 Urinary tract infection, site not specified; M94.0 Chondrocostal junction syndrome [Tietze]; M85.871 Other specified disorders of bone density and structure, right ankle and foot; I45.10 Unspecified right bundle-branch block; I25.10 Atherosclerotic heart disease of native coronary artery without angina pectoris; I10 Essential (primary) hypertension; F03.90 Unspecified dementia, unspecified severity, without behavioral disturbance, psychotic disturbance, mood disturbance, and anxiety; E66.9 Obesity, unspecified; E87.8 Other disorders of electrolyte and fluid balance, not elsewhere classified; Z86.73 Personal history of transient ischemic attack (TIA), and cerebral infarction without residual deficits; Z96.653 Presence of artificial knee joint, bilateral; M19.90 Unspecified osteoarthritis, unspecified site; R62.7 Adult failure to thrive; R26.9 Unspecified abnormalities of gait and mobility; E78.5 Hyperlipidemia, unspecified; W19.XXXA Unspecified fall, initial encounter; Y93.89 Activity, other specified; Z79.899 Other long term (current) drug therapy; Y92.89 Other specified places as the place of occurrence of the external cause; Y99.8 Other external cause status; Z68.33 Body mass index [BMI] 33.0-33.9, adult; R53.81 Other malaise
CPT/HCPCS: 36415; 71045; 73610; 80048; 80053; 81003; 82607; 83880; 84443; 84484; 85025; 87077; 87186; 93005; 93306; 93970; 97162; 97166; 97530; 99285; J0696; J2060; J2270; J2405; J7030; J7060; J8597

== ENCOUNTER 2021-05-02 20:49 | Inpatient (IN) | payer MEDICARE, MEDICAID ==
[~2021-05-02] VITALS: Ht 162.6 cm; Wt 87.1 kg
[2021-05-02 20:30] VITALS: BP 150/83
[~2021-05-02 20:49] MED LIST changes: +BENA10TA75 PO; +LEVO500T89 MT
[2021-05-02] MEDS ORDERED: MECLIZINE 25MG TABLET PO PRN (21:15)
[2021-05-02] MEDS ORDERED: ZOLPIDEM TARTRATE 5MG TABLET PO PRN (21:15)
[2021-05-02] MEDS ORDERED: ONDANSETRON HCL 4MG/2ML INJ IV PRN (21:15)
[2021-05-02] MEDS ORDERED: NALOXONE HCL 0.4 MG/ML 1ML VIAL IV PRN (21:15)
[2021-05-02] MEDS: HYDROCODONE/ACETAMINOPHEN 5/325MG TABLET PO PRN (22:22)
[2021-05-03] MEDS: HYDROCODONE/ACETAMINOPHEN 5/325MG TABLET PO PRN ×4 (06:51→22:41)
[2021-05-03 07:47] VITALS: BP 116/50
[2021-05-03] MEDS: MEMANTINE HCL 5MG TABLET PO SCH ×2 (09:00→21:14)
[2021-05-03] MEDS: ASPIRIN 81MG TABLET PO SCH (10:35)
[2021-05-03] MEDS: LEVOFLOXACIN 500MG TABLET PO SCH (12:44)
[2021-05-03] MEDS ORDERED: CEFTRIAXONE 1,000 MG in DEXTROSE 5% WATER 50 ML IV SCH (14:00)
[2021-05-03] MEDS: RISPERIDONE 0.5MG TABLET PO SCH (15:26)
[2021-05-03 20:00] VITALS: BP 104/54
[2021-05-04] MEDS ORDERED: LACTULOSE 20G/30ML UDC PO NR ×2 (06:00→22:00)
[2021-05-04 08:39] VITALS: BP 129/66
[2021-05-04] MEDS: ASPIRIN 81MG TABLET PO SCH (08:51)
[2021-05-04] MEDS: MEMANTINE HCL 5MG TABLET PO SCH ×2 (08:55→21:00)
[2021-05-04] MEDS: RISPERIDONE 0.5MG TABLET PO SCH ×2 (08:55→17:55)
[2021-05-04] MEDS: HYDROCODONE/ACETAMINOPHEN 5/325MG TABLET PO PRN (08:55)
[2021-05-04] MEDS: LEVOFLOXACIN 500MG TABLET PO SCH (11:42)
[2021-05-04 20:00] VITALS: BP 130/71
[2021-05-05] MEDS: HYDROCODONE/ACETAMINOPHEN 5/325MG TABLET PO PRN ×3 (00:36→18:33)
[2021-05-05 07:51] VITALS: BP 114/53
[2021-05-05] MEDS: ASPIRIN 81MG TABLET PO SCH (08:33)
[2021-05-05] MEDS: RISPERIDONE 0.5MG TABLET PO SCH ×2 (08:33→16:12)
[2021-05-05] MEDS: MEMANTINE HCL 5MG TABLET PO SCH ×2 (08:33→20:07)
[2021-05-05] MEDS: LACTULOSE 20G/30ML UDC PO SCH ×3 (09:19→17:02)
[2021-05-05] MEDS: LEVOFLOXACIN 500MG TABLET PO SCH (10:25)
[2021-05-05] MEDS ORDERED: HYDROXYZINE 10 MG TABLET PO PRN (16:30)
[2021-05-05] MEDS ORDERED: NA PHOS,M-B/NA PHOS,DI-BA ENEMA 118ML PR NR (16:45)
[2021-05-05] MEDS: ACETAMINOPHEN 325MG TABLET PO PRN (17:03)
[2021-05-05 20:00] VITALS: BP 114/63
[2021-05-06 08:00] VITALS: BP 136/74
[2021-05-06] MEDS: RISPERIDONE 0.5MG TABLET PO SCH ×2 (10:11→16:51)
[2021-05-06] MEDS: MEMANTINE HCL 5MG TABLET PO SCH ×2 (10:11→21:29)
[2021-05-06] MEDS: ASPIRIN 81MG TABLET PO SCH (10:13)
[2021-05-06] MEDS: LEVOFLOXACIN 500MG TABLET PO SCH (10:13)
[2021-05-06] MEDS: HYDROCODONE/ACETAMINOPHEN 5/325MG TABLET PO PRN ×2 (10:13→21:32)
[2021-05-06 20:00] VITALS: BP 111/57
[2021-05-07 07:46] LABS: BASOPHILS % 0.6 % (0.0-2.0); EOSINOPHILS % 2.1 % (0.0-5.0); HEMATOCRIT. 30.1 % (36.0-48.0); HEMOGLOBIN. 10.4 g/dL (12.0-16.0); MEAN CORPUSCULAR HEMOGLOBIN 31.7 pg (28.0-32.0); MEAN CORPUSCULAR VOLUME 91.7 fL (81.0-99.0); MEAN PLATELET VOLUME 8.9 fl (7.4-10.4); MONOCYTES % 14.8 % (2.0-8.0); NEUTROPHILS % 53.5 % (40.0-76.0); PLATELET 276 x1000/uL (130-400); RED BLOOD CELL COUNT 3.28 mill/uL (4.2-5.4); RED CELL DISTRIBUTION WIDTH 14.6 % (11.6-14.6)
[2021-05-07 08:25] VITALS: BP 115/72
[2021-05-07] MEDS: HYDROCODONE/ACETAMINOPHEN 5/325MG TABLET PO PRN ×2 (10:13→19:56)
[2021-05-07] MEDS: RISPERIDONE 0.5MG TABLET PO SCH ×2 (10:13→17:02)
[2021-05-07] MEDS: ASPIRIN 81MG TABLET PO SCH (10:13)
[2021-05-07] MEDS: MEMANTINE HCL 5MG TABLET PO SCH ×2 (10:13→20:46)
[2021-05-07] MEDS: ACETAMINOPHEN 325MG TABLET PO PRN (12:27)
[2021-05-07] MEDS: LEVOFLOXACIN 500MG TABLET PO SCH (12:27)
[2021-05-07 20:00] VITALS: BP 120/41
[2021-05-07] MEDS ORDERED: SODIUM POLYSTYRENE SULFONATE 15 G/60 ML BOT PO NR (21:00)
[2021-05-08] MEDS ORDERED: ZOLPIDEM TARTRATE 5MG TABLET PO PRN
[2021-05-08 07:50] VITALS: BP 112/47
[2021-05-08] MEDS: RISPERIDONE 0.5MG TABLET PO SCH ×2 (08:25→17:48)
[2021-05-08] MEDS: MEMANTINE HCL 5MG TABLET PO SCH ×2 (08:26→20:11)
[2021-05-08] MEDS: ASPIRIN 81MG TABLET PO SCH (08:26)
[2021-05-08] MEDS: HYDROCODONE/ACETAMINOPHEN 5/325MG TABLET PO PRN ×3 (08:26→23:57)
[2021-05-08] MEDS: ACETAMINOPHEN 325MG TABLET PO PRN (18:29)
[2021-05-08 20:00] VITALS: BP 95/50
[2021-05-09 07:41] VITALS: BP 105/66
[2021-05-09] MEDS: ASPIRIN 81MG TABLET PO SCH (09:00)
[2021-05-09] MEDS: MEMANTINE HCL 5MG TABLET PO SCH ×2 (09:09→21:36)
[2021-05-09] MEDS: RISPERIDONE 0.5MG TABLET PO SCH ×2 (09:09→16:34)
[2021-05-09] MEDS: HYDROCODONE/ACETAMINOPHEN 5/325MG TABLET PO PRN ×3 (09:44→18:22)
[2021-05-09 17:57] LABS: BASOPHILS % 0.9 % (0.0-2.0); EOSINOPHILS % 1.8 % (0.0-5.0); HEMATOCRIT. 29.6 % (36.0-48.0); HEMOGLOBIN. 10.3 g/dL (12.0-16.0); LYMPHOCYTES % 23.8 % (20.0-50.0); MEAN CORPUSCULAR HEMOGLOBIN 31.8 pg (28.0-32.0); MEAN CORPUSCULAR VOLUME 91.2 fL (81.0-99.0); MEAN PLATELET VOLUME 8.8 fl (7.4-10.4); NEUTROPHILS % 59.5 % (40.0-76.0); PLATELET 303 x1000/uL (130-400); RED BLOOD CELL COUNT 3.25 mill/uL (4.2-5.4); RED CELL DISTRIBUTION WIDTH 14.5 % (11.6-14.6)
[2021-05-09 20:00] VITALS: BP 130/70
[2021-05-10] MEDS: ACETAMINOPHEN 325MG TABLET PO PRN (00:35)
[2021-05-10 08:20] VITALS: BP 103/56
[2021-05-10] MEDS: ASPIRIN 81MG TABLET PO SCH (09:32)
[2021-05-10] MEDS: MEMANTINE HCL 5MG TABLET PO SCH (09:32)
[2021-05-10] MEDS: RISPERIDONE 0.5MG TABLET PO SCH (09:33)
[2021-05-10] MEDS: HYDROCODONE/ACETAMINOPHEN 5/325MG TABLET PO PRN (09:46)
[2021-05-10] MEDS ORDERED: RISP05 PO (10:24)
[2021-05-10] MEDS ORDERED: MEMA5TAB7 PO (10:24)
[2021-05-10 10:50] VITALS: BP 103/56
[2021-05-10] MEDS ORDERED: SODIUM POLYSTYRENE SULFONATE 15 G/60 ML BOT PO SCH (12:00)
== END 2021-05-10 11:15 | disposition home health service (06) | DRG 948 ==
PROVIDERS: ADMIT Psychiatry & Neurology Neurology; ATTEND Internal Medicine
DX: R53.81 Other malaise (principal); N39.0 Urinary tract infection, site not specified; F05 Delirium due to known physiological condition; F03.90 Unspecified dementia, unspecified severity, without behavioral disturbance, psychotic disturbance, mood disturbance, and anxiety; E66.9 Obesity, unspecified; I10 Essential (primary) hypertension; R32 Unspecified urinary incontinence; M85.80 Other specified disorders of bone density and structure, unspecified site; E87.5 Hyperkalemia; F39 Unspecified mood [affective] disorder; M25.571 Pain in right ankle and joints of right foot; R26.9 Unspecified abnormalities of gait and mobility; R62.7 Adult failure to thrive; Z68.33 Body mass index [BMI] 33.0-33.9, adult; Z79.899 Other long term (current) drug therapy; Z86.73 Personal history of transient ischemic attack (TIA), and cerebral infarction without residual deficits
CPT/HCPCS: 36415; 80048; 85025; 92523; 97110; 97116; 97162; 97166; 97530; 97535; J0696; J7060

== ENCOUNTER 2022-01-09 19:38 | Emergency (ER) | payer MEDICARE, MEDICAID ==
[~2022-01-09] VITALS: Ht 162.6 cm; Wt 64.0 kg
[~2022-01-09 19:38] MED LIST changes: +MEMA5TAB7 PO; +RISP05 PO
[2022-01-09] MEDS ORDERED: SODIUM CHLORIDE 0.9% 1,000 ML IV ONE (20:15)
[2022-01-09 22:58] LABS: BASOPHILS % 0.5 % (0.0-2.0); EOSINOPHILS % 2.4 % (0.0-5.0); HEMATOCRIT. 32.8 % (36.0-48.0); HEMOGLOBIN. 10.9 g/dL (12.0-16.0); LYMPHOCYTES % 31.8 % (20.0-50.0); MEAN CORPUSCULAR HEMOGLOBIN 30.8 pg (28.0-32.0); MEAN PLATELET VOLUME 8.4 fl (7.4-10.4); MONOCYTES % 13.3 % (2.0-8.0); PLATELET 305 x1000/uL (130-400); RED BLOOD CELL COUNT 3.53 mill/uL (4.2-5.4); RED CELL DISTRIBUTION WIDTH 15.3 % (11.6-14.6)
[2022-01-09 23:05] LABS: CHLORIDE 107 mEq/L (98-107)
[2022-01-10 09:29] VITALS: BP 113/59
== END 2022-01-10 09:46 | disposition home or self-care (01) ==
LOC: ER 19:38
DX: G93.49 Other encephalopathy (principal); I11.9 Hypertensive heart disease without heart failure; I25.10 Atherosclerotic heart disease of native coronary artery without angina pectoris; D64.9 Anemia, unspecified; E78.00 Pure hypercholesterolemia, unspecified; F32.A Depression, unspecified; Z98.890 Other specified postprocedural states; Z96.659 Presence of unspecified artificial knee joint
CPT/HCPCS: 36415; 71045; 80053; 83605; 83880; 84484; 85025; 87040; 93005; 96360; 96361; 99285; J7030